=== PATIENT | female | born 1960 | race Caucasian/White ===

== ENCOUNTER → 2017-04-04 | Outpatient (CLI) | payer MEDICARE, BC ==
[~2017-04-04] MED LIST: /WARF25TA; ACET65TA; ASPI81TA63; ASTEPRO; CALCTAB22; DARV100T; FERR325T; IBUP800T OR; LOPR50TA; LOPRESSOR; METO10TA2; MULTIVIT; PERC5TAB8; PERC7.5T8; TRAM100T; TRAM50TA2; VITAMIN; VITAMIN D; VITAMIN D50000 UNT; WARF5VL; aspirin PO; lopressor PO; tramadol PO; vicodin PO
--- NOTE | 2017-04-04 11:49 | REP ---
RENAL AND BLADDER ULTRASOUND: Real-time sonographic evaluation of the kidneys performed. The kidneys are normal in size and echotexture, right kidney measuring 10.1 x 5.2 x 6.0 cm and left kidney 11.0 x 5.2 x 5.3 cm. There is no hydronephrosis bilaterally. A large cyst is again seen of the upper pole of the left kidney measuring 6.4 x 5.4 x 6.0 cm. This is anechoic. Prior measurement on the exam of 11/30/2010 was 7.2 cm maximally. No other renal mass is seen. Urinary bladder demonstrates no mass or calculus, measuring 12.4 x 7.9 x 7.8 cm for a total volume of 499 mL. Post void residual is 33 mL, 6.6% of the original volume. IMPRESSION: Simple left renal cyst actually appears smaller than the prior exam in 2010. Signed by Lalito Park MD 04/04/2017 03:34 P
== END ==
LOC: M RAD 10:23
PROVIDERS: ATTEND Nurse Practitioner Women's Health
DX: N28.1 Cyst of kidney, acquired (principal)

== ENCOUNTER → 2017-04-10 | Outpatient (REF) | payer MEDICARE, BC | LOC: M SMT 13:13 | PROVIDERS: ATTEND Nurse Practitioner Women's Health | DX: R31.1 Benign essential microscopic hematuria (principal) | CPT/HCPCS: 81001; 87086; G0463 ==

== ENCOUNTER → 2017-07-12 | Outpatient (CLI) | payer MEDICARE, BC ==
--- NOTE | 2017-07-12 12:36 | REPMRS ---
Patient History The patient states she has not had a clinical breast exam in over a year. Patient is postmenopausal. Family history of prostate cancer in maternal cousin at age 40 and breast cancer in maternal cousin. Digital Woman Screen Mammo: July 12, 2017 - Exam #: [id number] Bilateral CC and MLO view(s) were taken. Technologist: Miladis Ruvalcaba, Technologist Prior study comparison: June 05, 2016, digital woman screen mammo performed at [facility]. April 22, 2015, digital woman screen mammo performed at [facility]. April 09, 2014, digital woman screen mammo performed at [facility]. FINDINGS: The breast tissue is almost entirely fat. There has been no change in the appearance of the mammogram from the prior studies. There is no interval development of dominant mass, architectural distortion, or clustered microcalcification typical of malignancy. ASSESSMENT: BI-RADS/ACR category 1 mammogram. Negative. Recommendation Routine screening mammogram of both breasts in 1 year (for women over age 40). This mammogram was interpreted with the aid of an FDA-approved computer-aided dectection system. Electronically Signed By: Santos Aragon MD 07/12/17 [id number]
== END ==
LOC: M WHC 10:23
PROVIDERS: ATTEND Nurse Practitioner Family
DX: Z12.31 Encounter for screening mammogram for malignant neoplasm of breast (principal)

== ENCOUNTER → 2017-07-24 | Outpatient (REF) | payer MEDICARE, BC ==
[2017-07-24 11:57] LABS: BASO % 0.3 % (0.0-1.0); EOS % 0.8 % (0.0-3.0); IMMATURE GRANULOCYTE % 0.3 % (0-0); LYMPH # 1.3 10^3/uL (1.5-4.5); LYMPH % 34.4 % (24.0-44.0); MEAN CORPUSCULAR HEMOGLOBIN 29.3 pg (27.0-33.0); MEAN CORPUSCULAR HGB CONC 31.9 g/dl (32.0-36.5); MEAN CORPUSCULAR VOLUME 91.7 fl (80.0-96.0); MONO # 0.3 10^3/uL (0.0-0.8); MONO % 7.6 % (0.0-5.0); NEUTROPHILS # 2.1 10^3/uL (1.8-7.7); NEUTROPHILS % 56.6 % (36.0-66.0); PLATELET COUNT, AUTOMATED 204 10^3/uL (150-450); RED CELL DISTRIBUTION WIDTH 12.8 % (11.5-14.5); WHITE BLOOD COUNT 3.7 10^3/uL (4.0-10.0)
[2017-07-24 12:21] LABS: VITAMIN B12 LEVEL 301 PG/ML (247-911)
[2017-07-24 12:43] LABS: ALBUMIN 3.8 GM/DL (3.2-5.2); ALBUMIN/GLOBULIN RATIO 1.31 (1.00-1.93); ALKALINE PHOSPHATASE 49 U/L (45-117); ALT/SGPT 20 U/L (12-78); ANION GAP 4 MEQ/L (8-16); AST/SGOT 16 U/L (15-37); BILIRUBIN,TOTAL 0.4 MG/DL (0.2-1.0); BLOOD UREA NITROGEN 16 MG/DL (7-18); CALCIUM LEVEL 9.3 MG/DL (8.5-10.1); CARBON DIOXIDE LEVEL 30 MEQ/L (21-32); CHLORIDE LEVEL 107 MEQ/L (98-107); CHOLESTEROL LEVEL 213 MG/DL (<200); FREE T4 0.88 NG/DL (0.76-1.46); GLOMERULAR FILTRATION RATE > 60.0 (>51); GLUCOSE, FASTING 88 MG/DL (70-105); POTASSIUM SERUM 3.9 MEQ/L (3.5-5.1); SODIUM LEVEL 141 MEQ/L (136-145); TOTAL PROTEIN 6.7 GM/DL (6.4-8.2); TRIGLYCERIDES LEVEL 106 MG/DL (<150)
== END ==
LOC: M LABDRAW1 09:49
PROVIDERS: ATTEND Nurse Practitioner Family
DX: E53.8 Deficiency of other specified B group vitamins (principal); R53.83 Other fatigue; E55.9 Vitamin D deficiency, unspecified; E78.4 Other hyperlipidemia

== ENCOUNTER → 2017-10-30 | Outpatient (CLI) | payer MEDICARE, BC ==
[2017-10-30 12:07] LABS: HEMATOCRIT 36.1 % (36.0-47.0); HEMOGLOBIN 11.7 g/dl (12.0-16.0); MEAN CORPUSCULAR HEMOGLOBIN 29.5 pg (27.0-33.0); MEAN CORPUSCULAR HGB CONC 32.4 g/dl (32.0-36.5); MEAN CORPUSCULAR VOLUME 91.2 fl (80.0-96.0); PLATELET COUNT, AUTOMATED 220 10^3/uL (150-450); RED BLOOD COUNT 3.96 10^6/uL (4.00-5.40); RED CELL DISTRIBUTION WIDTH 12.8 % (11.5-14.5); WHITE BLOOD COUNT 5.7 10^3/uL (4.0-10.0)
[2017-10-30 12:16] LABS: APPEARANCE, URINE CLEAR (CLEAR); BACTERIA, URINE AUTO NEGATIVE (NEGATIVE); BILIRUBIN, URINE AUTO NEGATIVE (NEGATIVE); BLOOD, URINE BLOOD 1+ (NEGATIVE); COLOR, URINE YELLOW (YELLOW); GLUCOSE, URINE (UA) AUTO NEGATIVE (NEGATIVE); KETONE, URINE AUTO NEGATIVE (NEGATIVE); LEUKOCYTE ESTERASE, URINE AUTO NEGATIVE (NEGATIVE); MUCUS, URINE SMALL (NEGATIVE); NITRITE, URINE AUTO NEGATIVE (NEGATIVE); PROTEIN, URINE AUTO NEGATIVE (NEGATIVE); RBC, URINE AUTO 5 /HPF (0-3); SPECIFIC GRAVITY URINE AUTO 1.015 (1.002-1.035); SQUAMOUS EPITHELIAL CELL UR AU 0 /HPF (0-6); UROBILINOGEN, URINE AUTO 0.2 mg/dL (0.0-2.0); WBC, URINE AUTO 0 /HPF (0-3)
[2017-10-30 12:18] LABS: INR 0.86; PROTHROMBIN TIME 11.8 SECONDS (12.4-14.5)
[2017-10-30 12:33] LABS: ALBUMIN/GLOBULIN RATIO 1.21 (1.00-1.93); ALKALINE PHOSPHATASE 51 U/L (45-117); ALT/SGPT 26 U/L (12-78); ANION GAP 5 MEQ/L (8-16); AST/SGOT 24 U/L (7-37); BILIRUBIN,TOTAL 0.4 MG/DL (0.2-1.0); BLOOD UREA NITROGEN 16 MG/DL (7-18); CALCIUM LEVEL 9.3 MG/DL (8.5-10.1); CARBON DIOXIDE LEVEL 32 MEQ/L (21-32); CHLORIDE LEVEL 105 MEQ/L (98-107); CREATININE FOR GFR 0.66 MG/DL (0.55-1.02); GLOMERULAR FILTRATION RATE > 60.0 (>51); GLUCOSE, FASTING 83 MG/DL (70-105); POTASSIUM SERUM 3.9 MEQ/L (3.5-5.1); SODIUM LEVEL 142 MEQ/L (136-145); TOTAL PROTEIN 7.3 GM/DL (6.4-8.2)
[2017-10-30 13:04] LABS: ERYTHROCYTE SEDIMENTATION RATE 25 mm/hr (0-30)
== END ==
LOC: M ADMPAT 10:23
DX: Z01.818 Encounter for other preprocedural examination (principal); M17.12 Unilateral primary osteoarthritis, left knee; R94.31 Abnormal electrocardiogram [ECG] [EKG]; Z79.01 Long term (current) use of anticoagulants; Z79.899 Other long term (current) drug therapy
CPT/HCPCS: 71046

== ENCOUNTER → 2017-12-21 | Outpatient (REF) | payer MEDICARE, BC | LOC: M LAB REF 17:38 | DX: N39.0 Urinary tract infection, site not specified (principal) | CPT/HCPCS: 87186 ==

== ENCOUNTER 2018-01-02 10:22 | Inpatient (IN) | payer MEDICARE, BC ==
[2018-01-02] MEDS ORDERED: LIDOCAINE 1% MDV 20ML VIAL SQ (11:00)
[2018-01-02] MEDS: LR 1,000 ML IV ×3 (11:15→21:27)
[2018-01-02] MEDS ORDERED: PROPOFOL 200 MG/20 ML VIAL As Ordered ×2 (12:10→14:46)
[2018-01-02] MEDS ORDERED: fentaNYL 100 MCG/2 ML INJECTION (J3010) As Ordered ×2 (12:13→12:34)
[2018-01-02] MEDS ORDERED: MIDAZOLAM INJ 2 MG/2 ML VIAL (J2250) As Ordered ×3 (12:13→13:41)
[2018-01-02] MEDS: fentaNYL 100 MCG/2 ML INJECTION (J3010) IV (12:52)
[2018-01-02] MEDS: MIDAZOLAM INJ 2 MG/2 ML VIAL (J2250) IV (12:52)
[2018-01-02] MEDS ORDERED: TRANEXAMIC ACID 100 MG/ML 10ML VIAL As Ordered (12:56)
[2018-01-02] MEDS ORDERED: EPINEPHrine INJ 1 MG/ML 1ML AMP As Ordered (12:57)
[2018-01-02] MEDS ORDERED: ceFAZolin 1GM INJ (J0690 PER 500MG) As Ordered (12:57)
[2018-01-02] MEDS ORDERED: BUPIVACAINE LIPOSOME/PF 1.3% 20 ML VIAL (13.3MG/ML)(EXPAREL) As Ordered (12:57)
[2018-01-02] MEDS: ceFAZolin 1GM INJ (J0690 PER 500MG) As Ordered (13:52)
[2018-01-02] MEDS ORDERED: ONDANSETRON 4MG/2ML VIAL (J2405) As Ordered (14:22)
[2018-01-02] MEDS ORDERED: dexameTHASONE 4 MG/ML 1ML VIAL (J1100) As Ordered (14:22)
[2018-01-02] MEDS ORDERED: KETOROLAC 60 MG/2 ML VIAL (J1885) As Ordered (14:22)
[2018-01-02] MEDS ORDERED: MORPHINE 1MG/ML IN 0.9% NACL 100ML IV BAG As Ordered (14:50)
[2018-01-02] MEDS ORDERED: ONDANSETRON 4MG/2ML VIAL (J2405) IV ×3 (15:15→15:30)
[2018-01-02] MEDS ORDERED: fentaNYL 100 MCG/2 ML INJECTION (J3010) IV (15:15)
[2018-01-02] MEDS ORDERED: EPINEPHrine INJ 1 MG/ML 1ML AMP (15:18)
[2018-01-02] MEDS ORDERED: ROPIvacaine 0.5% 30 ML INJECTION (J2795 PER 1MG) (15:18)
[2018-01-02] MEDS ORDERED: dexameTHASONE 10 MG/1 ML VIAL PRES.FREE (J1100) (15:18)
[2018-01-02] MEDS ORDERED: FLEET ENEMA PR (15:30)
[2018-01-02] MEDS ORDERED: NALOXONE INJ 0.4 MG/1 ML VIAL (J2310) IV (15:30)
[2018-01-02] MEDS ORDERED: MORPHINE 1MG/ML IN 0.9% NACL 100ML IV BAG IV (15:30)
[2018-01-02] MEDS ORDERED: diphenhydrAMINE INJ 50MG/ML VIAL (J1200) IV (15:30)
[2018-01-02] MEDS ORDERED: NALBUPHINE HCL 10 MG/ML AMP (J2300) IV (15:30)
[2018-01-02] MEDS ORDERED: ACETAMINOPHEN TAB 650MG DOSE (2X325MG) PO (15:30)
[2018-01-02] MEDS ORDERED: EPIDURAL/PCA KEYS XX (15:30)
[2018-01-02] MEDS: amLODIPine 10 MG TAB PO (17:00)
[2018-01-02] MEDS: WARFARIN SOD 5 MG TAB PO (17:01)
[2018-01-02] MEDS: METOPROLOL TART 25 MG TABLET PO ×2 (17:01→21:28)
[2018-01-02] MEDS: **hydrALAZINE** 10 MG TAB PO (20:00)
[2018-01-03] MEDS: **hydrALAZINE** 10 MG TAB PO ×4 (02:00→20:00)
[2018-01-03] MEDS: LR 1,000 ML IV (04:50)
[2018-01-03] MEDS ORDERED: PERCOCET 5MG/325MG TAB PO (06:30)
[2018-01-03] MEDS ORDERED: ONDANSETRON 4 MG TAB (S0181) PO (06:30)
[2018-01-03 07:01] LABS: HEMATOCRIT 32.4 % (36.0-47.0); HEMOGLOBIN 10.3 g/dl (12.0-16.0); MEAN CORPUSCULAR HEMOGLOBIN 28.8 pg (27.0-33.0); MEAN CORPUSCULAR HGB CONC 31.8 g/dl (32.0-36.5); MEAN CORPUSCULAR VOLUME 90.5 fl (80.0-96.0); PLATELET COUNT, AUTOMATED 193 10^3/uL (150-450); RED BLOOD COUNT 3.58 10^6/uL (4.00-5.40); RED CELL DISTRIBUTION WIDTH 12.6 % (11.5-14.5); WHITE BLOOD COUNT 10.5 10^3/uL (4.0-10.0)
[2018-01-03 07:19] LABS: INR 1.02; PROTHROMBIN TIME 13.5 SECONDS (12.4-14.5)
[2018-01-03 07:22] LABS: ANION GAP 7 MEQ/L (8-16); BLOOD UREA NITROGEN 16 MG/DL (7-18); CALCIUM LEVEL 8.9 MG/DL (8.5-10.1); CARBON DIOXIDE LEVEL 28 MEQ/L (21-32); CHLORIDE LEVEL 107 MEQ/L (98-107); CREATININE FOR GFR 0.67 MG/DL (0.55-1.30); GLOMERULAR FILTRATION RATE > 60.0 (>51); GLUCOSE, FASTING 105 MG/DL (70-100); POTASSIUM SERUM 3.9 MEQ/L (3.5-5.1); SODIUM LEVEL 142 MEQ/L (136-145)
[2018-01-03] MEDS: SENOKOT S TAB PO ×2 (08:16→21:20)
[2018-01-03] MEDS: MOM 30ML SUSPENSION UDC PO (08:16)
[2018-01-03] MEDS: MIRALAX *UNIT DOSE* 17GM PACKET PO (08:17)
[2018-01-03] MEDS: METOPROLOL TART 25 MG TABLET PO ×2 (08:17→21:21)
[2018-01-03] MEDS: PERCOCET 5MG/325MG TAB PO ×3 (08:18→21:21)
[2018-01-03] MEDS: WARFARIN SOD 5 MG TAB PO (16:47)
[2018-01-04] MEDS: **hydrALAZINE** 10 MG TAB PO ×2 (02:00→08:24)
[2018-01-04] MEDS: PERCOCET 5MG/325MG TAB PO ×2 (02:10→06:39)
[2018-01-04 06:15] LABS: HEMATOCRIT 29.5 % (36.0-47.0); HEMOGLOBIN 9.2 g/dl (12.0-16.0); MEAN CORPUSCULAR HEMOGLOBIN 28.7 pg (27.0-33.0); MEAN CORPUSCULAR HGB CONC 31.2 g/dl (32.0-36.5); MEAN CORPUSCULAR VOLUME 91.9 fl (80.0-96.0); PLATELET COUNT, AUTOMATED 175 10^3/uL (150-450); RED BLOOD COUNT 3.21 10^6/uL (4.00-5.40); RED CELL DISTRIBUTION WIDTH 13.2 % (11.5-14.5); WHITE BLOOD COUNT 6.8 10^3/uL (4.0-10.0)
[2018-01-04] MEDS: MIRALAX *UNIT DOSE* 17GM PACKET PO (08:23)
[2018-01-04] MEDS: METOPROLOL TART 25 MG TABLET PO (08:24)
[2018-01-04] MEDS: SENOKOT S TAB PO (08:25)
[2018-01-04] MEDS: MOM 30ML SUSPENSION UDC PO (08:25)
== END 2018-01-04 13:15 | disposition home health service (06) | DRG 470 ==
LOC: M OR 10:22 → M MS5PR 16:05
PROC: 0SRD069 Replacement of Left Knee Joint with Oxidized Zirconium on Polyethylene Synthetic Substitute, Cemented, Open Approach (ICD-10-PCS; principal; 2018-01-02 13:00)
DX: M17.12 Unilateral primary osteoarthritis, left knee (principal); I10 Essential (primary) hypertension; Z88.1 Allergy status to other antibiotic agents; Z79.899 Other long term (current) drug therapy; Z96.651 Presence of right artificial knee joint; Z95.0 Presence of cardiac pacemaker; Z90.710 Acquired absence of both cervix and uterus; Z22.321 Carrier or suspected carrier of Methicillin susceptible Staphylococcus aureus; Z79.82 Long term (current) use of aspirin

== ENCOUNTER → 2018-01-06 | Outpatient (REF) | payer MEDICARE, BC ==
[2018-01-06 13:14] LABS: INR 1.34; PROTHROMBIN TIME 16.8 SECONDS (12.4-14.5)
== END ==
LOC: M LAB REF 11:35
DX: Z79.01 Long term (current) use of anticoagulants (principal)
CPT/HCPCS: 85610

== ENCOUNTER → 2018-01-09 | Outpatient (REF) | payer MEDICARE, BC ==
[2018-01-09 16:36] LABS: INR 1.59; PROTHROMBIN TIME 19.4 SECONDS (12.4-14.5)
== END ==
LOC: M SHH 16:00
DX: Z51.81 Encounter for therapeutic drug level monitoring (principal); Z79.01 Long term (current) use of anticoagulants
CPT/HCPCS: 85610

== ENCOUNTER → 2018-01-13 | Outpatient (REF) | payer MEDICARE, BC ==
[2018-01-13 14:01] LABS: INR 1.87; PROTHROMBIN TIME 22.1 SECONDS (12.4-14.5)
== END ==
LOC: M SHH 12:57
DX: Z79.01 Long term (current) use of anticoagulants (principal)
CPT/HCPCS: 85610

== ENCOUNTER → 2018-01-16 | Outpatient (REF) | payer MEDICARE, BC ==
[2018-01-16 11:47] LABS: INR 1.55
== END ==
LOC: M LABDRAW1 10:49
DX: Z51.81 Encounter for therapeutic drug level monitoring (principal); Z79.01 Long term (current) use of anticoagulants
CPT/HCPCS: 85610

== ENCOUNTER → 2018-01-20 | Outpatient (REF) | payer MEDICARE, BC ==
[2018-01-20 13:06] LABS: INR 1.29; PROTHROMBIN TIME 16.4 SECONDS (12.4-14.5)
== END ==
LOC: M SHH 12:45
DX: Z79.01 Long term (current) use of anticoagulants (principal)
CPT/HCPCS: 85610

== ENCOUNTER → 2018-01-23 | Outpatient (REF) | payer MEDICARE, BC ==
[2018-01-23 12:18] LABS: INR 1.38; PROTHROMBIN TIME 17.2 SECONDS (12.4-14.5)
== END ==
LOC: M LABDRAW1 11:32
DX: Z79.01 Long term (current) use of anticoagulants (principal)
CPT/HCPCS: 85610

== ENCOUNTER → 2018-01-27 | Outpatient (REF) | payer MEDICARE, BC ==
[2018-01-27 12:55] LABS: INR 1.96
== END ==
LOC: M SHH 12:14
DX: Z79.01 Long term (current) use of anticoagulants (principal)
CPT/HCPCS: 85610

== ENCOUNTER → 2018-01-30 | Outpatient (REF) | payer MEDICARE, BC ==
[2018-01-30 15:24] LABS: INR 1.69; PROTHROMBIN TIME 20.4 SECONDS (12.4-14.5)
== END ==
LOC: M SHH 14:48
DX: Z79.01 Long term (current) use of anticoagulants (principal)
CPT/HCPCS: 85610

== ENCOUNTER → 2018-04-15 | Outpatient (CLI) | payer MEDICARE, BC | LOC: M RAD 13:08 | DX: N28.1 Cyst of kidney, acquired (principal) | CPT/HCPCS: 76775 ==

== ENCOUNTER → 2018-04-23 | Outpatient (REF) | payer MEDICARE, BC ==
[2018-04-23 13:28] LABS: APPEARANCE, URINE CLEAR (CLEAR); BACTERIA, URINE AUTO 1+ (NEGATIVE); BILIRUBIN, URINE AUTO NEGATIVE (NEGATIVE); BLOOD, URINE BLOOD 1+ (NEGATIVE); COLOR, URINE YELLOW (YELLOW); GLUCOSE, URINE (UA) AUTO NEGATIVE (NEGATIVE); KETONE, URINE AUTO NEGATIVE (NEGATIVE); LEUKOCYTE ESTERASE, URINE AUTO NEGATIVE (NEGATIVE); MUCUS, URINE SMALL (NEGATIVE); NITRITE, URINE AUTO NEGATIVE (NEGATIVE); PROTEIN, URINE AUTO NEGATIVE (NEGATIVE); RBC, URINE AUTO 2 /HPF (0-3); SPECIFIC GRAVITY URINE AUTO 1.023 (1.002-1.035); SQUAMOUS EPITHELIAL CELL UR AU 1 /HPF (0-6); UROBILINOGEN, URINE AUTO 0.2 mg/dL (0.0-2.0); WBC, URINE AUTO 0 /HPF (0-3)
== END ==
LOC: M SMT 13:06
DX: R31.1 Benign essential microscopic hematuria (principal)
CPT/HCPCS: 81001

== ENCOUNTER 2018-08-15 12:01 | Emergency (ER) | payer MEDICARE, BC ==
[2018-08-15 12:57] LABS: BASO % 0.2 % (0.0-1.0); EOS % 0.9 % (0.0-3.0); HEMATOCRIT 39.8 % (36.0-47.0); HEMOGLOBIN 12.7 g/dl (12.0-15.5); IMMATURE GRANULOCYTE % 0.4 % (0-3.0); LYMPH # 1.4 10^3/uL (1.5-4.5); LYMPH % 29.2 % (24.0-44.0); MEAN CORPUSCULAR HEMOGLOBIN 29.4 pg (27.0-33.0); MEAN CORPUSCULAR HGB CONC 31.9 g/dl (32.0-36.5); MEAN CORPUSCULAR VOLUME 92.1 fl (80.0-96.0); MONO # 0.4 10^3/uL (0.0-0.8); MONO % 8.3 % (0.0-5.0); NEUTROPHILS # 2.9 10^3/uL (1.8-7.7); PLATELET COUNT, AUTOMATED 214 10^3/uL (150-450); RED BLOOD COUNT 4.32 10^6/uL (4.00-5.40); RED CELL DISTRIBUTION WIDTH 12.9 % (11.5-14.5); WHITE BLOOD COUNT 4.7 10^3/uL (4.0-10.0)
[2018-08-15 13:10] LABS: INR 0.93; PROTHROMBIN TIME 12.5 SECONDS (12.1-14.4)
[2018-08-15 13:13] LABS: D-DIMER QUANT 941.1 ng/ml (<500)
[2018-08-15 13:31] LABS: ALBUMIN 4.1 GM/DL (3.2-5.2); ALBUMIN/GLOBULIN RATIO 1.32 (1.00-1.93); ALKALINE PHOSPHATASE 61 U/L (45-117); ALT/SGPT 22 U/L (12-78); ANION GAP 7 MEQ/L (8-16); AST/SGOT 17 U/L (7-37); BILIRUBIN,DIRECT 0.1 MG/DL (0.0-0.2); BILIRUBIN,TOTAL 0.5 MG/DL (0.2-1.0); BLOOD UREA NITROGEN 21 MG/DL (7-18); CALCIUM LEVEL 9.3 MG/DL (8.5-10.1); CARBON DIOXIDE LEVEL 29 MEQ/L (21-32); CHLORIDE LEVEL 107 MEQ/L (98-107); CPK CREATINE PHOSPHOKINASE 113 U/L (26-192); CREATININE FOR GFR 0.69 MG/DL (0.55-1.30); ETHYL ALCOHOL (ETHANOL) 0.003 % (0.000-0.010); FREE T4 0.88 NG/DL (0.76-1.46); GLOMERULAR FILTRATION RATE > 60.0 (>51); GLUCOSE, FASTING 86 MG/DL (70-100); MAGNESIUM LEVEL 2.5 MG/DL (1.8-2.4); MB/CK RELATIVE INDEX 1.24 (< OR =4); POTASSIUM SERUM 4.3 MEQ/L (3.5-5.1); SODIUM LEVEL 143 MEQ/L (136-145); THYROID STIMULATING HORMONE 0.505 uIU/ML (0.358-3.740); TOTAL PROTEIN 7.2 GM/DL (6.4-8.2); TROPONIN I < 0.02 NG/ML (< 0.10)
[2018-08-15 13:44] LABS: BEDSIDE GLUCOSE 58 MG/DL (70-105)
[2018-08-15] MEDS ORDERED: ISOVUE-370 76% 100ML VIAL (Q9967) As Ordered ×2 (13:56)
[2018-08-15 14:28] LABS: AMPHETAMINES LEVEL URINE NEGATIVE (NEGATIVE); BARBITURATES URINE NEGATIVE (NEGATIVE); BENZODIAZEPINES URINE NEGATIVE (NEGATIVE); CANNABINOIDS URINE NEGATIVE (NEGATIVE); COCAINE METABOLITE URINE NEGATIVE (NEGATIVE); METHADONE URINE NEGATIVE (NEGATIVE); OPIATES URINE NEGATIVE (NEGATIVE); PHENCYCLIDINE URINE NEGATIVE (NEGATIVE)
[2018-08-15 14:32] LABS: ESTIMATED AVERAGE GLUCOSE 108 MG/DL (60-110); HEMOGLOBIN A1c 5.4 %
[2018-08-15 14:47] LABS: BEDSIDE GLUCOSE 78 MG/DL (70-105)
[2018-08-19 00:07] LABS: INSULIN LEVEL 19.9 uIU/mL (2.6-24.9)
[2018-08-19 00:07] LABS: "\\\"INSULIN \\\"\\\"PRO\\\"\\\" LEVEL\\\"" 2.8 pmol/L (0.0-10.0)
[2018-08-26 10:32] LABS: ACETOHEXAMIDE Negative ug/mL (20-60); CHLORPROPAMIDE Negative ug/mL (75-250); GLIMEPIRIDE Negative ng/mL (80-250); GLIPIZIDE Negative ng/mL (200-1000); GLYBURIDE Negative ng/mL (UP TO 1500); NATEGLINIDE Negative ng/mL (UP TO 10000); REPAGLINIDE Negative ng/mL (UP TO 200); TOLAZAMIDE Negative ug/mL (UP TO 80); TOLBUTAMIDE Negative ug/mL (40-100)
== END 2018-08-15 15:18 | disposition home or self-care (01) ==
LOC: M ED 12:01
DX: E16.2 Hypoglycemia, unspecified (principal); R55 Syncope and collapse; E86.0 Dehydration; I11.9 Hypertensive heart disease without heart failure; I25.10 Atherosclerotic heart disease of native coronary artery without angina pectoris; M19.90 Unspecified osteoarthritis, unspecified site; Z95.0 Presence of cardiac pacemaker; Z88.5 Allergy status to narcotic agent; Z88.1 Allergy status to other antibiotic agents; Z91.048 Other nonmedicinal substance allergy status; Z79.899 Other long term (current) drug therapy; Z79.82 Long term (current) use of aspirin
CPT/HCPCS: Q9967

== ENCOUNTER → 2018-09-08 | Outpatient (CLI) | payer MEDICARE, BC | LOC: M RAD 09:16 | DX: M51.26 Other intervertebral disc displacement, lumbar region (principal); M47.817 Spondylosis without myelopathy or radiculopathy, lumbosacral region; M51.06 Intervertebral disc disorders with myelopathy, lumbar region; M51.36 Other intervertebral disc degeneration, lumbar region | CPT/HCPCS: 72131 ==

== ENCOUNTER → 2018-12-18 | Outpatient (CLI) | payer MEDICARE ==
[~2018-12-18] MED LIST changes: +ASPI1TAB15 PO; +BENA25CA4 PO; +COUM2.5T17 PO; +FLUTISP; +HYDR-3713 PO; +MELO15TA28; +METO1TAB87; +PERC5TAB12 PO
--- NOTE | 2018-12-18 18:12 | REPMRS ---
Patient History The patient states she has not had a clinical breast exam in over a year. Patient is postmenopausal. Family history of ovarian cancer under age 50 in niece. Digital Woman Screen Mammo: December 18, 2018 - Exam #: [id number] Bilateral CC and MLO view(s) were taken. Technologist: Juana Lomax Technologist Prior study comparison: July 12, 2017, digital woman screen mammo performed at [facility]. June 05, 2016, digital woman screen mammo performed at [facility]. FINDINGS: The breast tissue is almost entirely fat. There has been no change in the appearance of the mammogram from the prior studies. There is no interval development of dominant mass, areas of architectural distortion, or clustered microcalcification typical of malignancy. Scattered lymph nodes are seen in the left axilla. Pacemaker overlies a portion of the left axilla. 3-D tomosynthesis shows no additional findings. The patient's Tyrer-Cuzick lifetime risk assessment score is 6.7 %. No significant changes when compared with prior studies. Assessment: BI-RADS/ACR category 2 mammogram. Benign Findings. Recommendation Routine screening mammogram in 1 year. A. Negative x-ray reports should not delay biopsy if a dominant or clinically suspicious mass is present. B. Four to eight percent of cancers are not identified by mammography. C. Adenosis and dense breast may obscure an underlying neoplasm.(for women over age 40). This mammogram was interpreted with the aid of an FDA-approved computer-aided dectection system. Electronically Signed By: Jose Mckeon MD 12/18/18 [id number]
== END ==
LOC: M WHC 10:16
PROVIDERS: ATTEND Nurse Practitioner Family
DX: Z12.31 Encounter for screening mammogram for malignant neoplasm of breast (principal)

== ENCOUNTER → 2019-03-02 | Outpatient (REF) | payer MEDICARE, BC ==
[~2019-03-02] MED LIST changes: -/WARF25TA; +COUM1TAB18
[2019-03-02 14:04] LABS: APPEARANCE, URINE CLOUDY (CLEAR); BACTERIA, URINE AUTO NEGATIVE (NEGATIVE); BILIRUBIN, URINE AUTO NEGATIVE (NEGATIVE); BLOOD, URINE BLOOD 1+ (NEGATIVE); COLOR, URINE YELLOW (YELLOW); GLUCOSE, URINE (UA) AUTO NEGATIVE (NEGATIVE); KETONE, URINE AUTO NEGATIVE (NEGATIVE); LEUKOCYTE ESTERASE, URINE AUTO TRACE (NEGATIVE); MUCUS, URINE SMALL (NEGATIVE); NITRITE, URINE AUTO NEGATIVE (NEGATIVE); PROTEIN, URINE AUTO NEGATIVE (NEGATIVE); RBC, URINE AUTO 2 /HPF (0-3); SPECIFIC GRAVITY URINE AUTO 1.021 (1.002-1.035); SQUAMOUS EPITHELIAL CELL UR AU 9 /HPF (0-6); UROBILINOGEN, URINE AUTO 0.2 mg/dL (0.0-2.0); WBC, URINE AUTO 4 /HPF (0-3)
== END ==
LOC: M LAB REF 13:43
PROVIDERS: ATTEND Nurse Practitioner Family
DX: R30.0 Dysuria (principal)

== ENCOUNTER → 2019-03-05 | Outpatient (CLI) | payer MEDICARE | LOC: M RAD 18:25 | PROVIDERS: ATTEND Nurse Practitioner Family | DX: Z53.9 Procedure and treatment not carried out, unspecified reason (principal); M54.6 Pain in thoracic spine ==

== ENCOUNTER → 2019-03-10 | Outpatient (REF) | payer MEDICARE ==
[2019-03-10 19:12] LABS: BLOOD UREA NITROGEN 19 MG/DL (7-18); CREATININE FOR GFR 0.81 MG/DL (0.55-1.30); GLOMERULAR FILTRATION RATE > 60.0 (>51)
== END ==
LOC: M LABDRAW1 18:37
PROVIDERS: ATTEND Physician Assistant
DX: M70.62 Trochanteric bursitis, left hip (principal)

== ENCOUNTER → 2019-03-12 | Outpatient (CLI) | payer MEDICARE ==
--- NOTE | 2019-03-12 16:12 | REP ---
RENAL ULTRASOUND: HISTORY: Kidney cyst. COMPARISON: 04/15/2018 The kidneys are normal in echogenicity. The right kidney measures 5.2 cm in transverse by 5.2 cm in AP x 10.3 cm in cephalocaudal dimensions. The left kidney measures 4 cm in transverse x 4.3 cm in AP x 10.9 cm in cephalocaudal dimensions. A cyst is present in the upper pole of the left kidney. The cyst measures 6 x 5.2 x 5.8 cm and is slightly increased in size compared to the previous study. There is no hydronephrosis or mass. There are no filling defects in the urinary bladder. IMPRESSION: Left renal cyst slightly increased in size compared to the previous study. Electronically Signed by Jason Kingston MD 03/12/2019 04:17 P
== END ==
LOC: M RAD 12:47
PROVIDERS: ATTEND Nurse Practitioner Women's Health
DX: N28.1 Cyst of kidney, acquired (principal)

== ENCOUNTER → 2019-03-24 | Outpatient (CLI) | payer MEDICARE ==
[2019-03-24 09:30] LABS: BASO % 0.5 % (0.0-1.0); EOS # 0.1 10^3/uL (0.0-0.50); EOS % 2.2 % (0.0-3.0); HEMATOCRIT 41.1 % (36.0-47.0); HEMOGLOBIN 12.9 g/dl (12.0-15.5); LYMPH # 1.2 10^3/uL (1.5-4.5); LYMPH % 28.8 % (24.0-44.0); MEAN CORPUSCULAR HEMOGLOBIN 28.9 pg (27.0-33.0); MEAN CORPUSCULAR HGB CONC 31.4 g/dl (32.0-36.5); MEAN CORPUSCULAR VOLUME 91.9 fl (80.0-96.0); MONO # 0.3 10^3/uL (0.0-0.8); MONO % 8.2 % (0.0-5.0); NEUTROPHILS # 2.5 10^3/uL (1.8-7.7); NEUTROPHILS % 60.1 % (36.0-66.0); PLATELET COUNT, AUTOMATED 203 10^3/uL (150-450); RED BLOOD COUNT 4.47 10^6/uL (4.00-5.40); WHITE BLOOD COUNT 4.1 10^3/uL (4.0-10.0)
[2019-03-24 10:58] LABS: ALBUMIN 3.5 GM/DL (3.2-5.2); ALT/SGPT 21 U/L (12-78); BILIRUBIN,TOTAL 0.5 MG/DL (0.2-1.0); BLOOD UREA NITROGEN 13 MG/DL (7-18); CALCIUM LEVEL 8.7 MG/DL (8.5-10.1); CARBON DIOXIDE LEVEL 32 MEQ/L (21-32); CHLORIDE LEVEL 107 MEQ/L (98-107); CHOLESTEROL LEVEL 229 MG/DL (<200); CHOLESTEROL RISK RATIO 3.816 (<5); CREATININE FOR GFR 0.79 MG/DL (0.55-1.30); GLOMERULAR FILTRATION RATE > 60.0 (>51); GLUCOSE, FASTING 85 MG/DL (70-100); HDL CHOLESTEROL 60 MG/DL (>40); LDL CHOLESTEROL 146 MG/DL (<100); NON-HDL-C 169 MG/DL; POTASSIUM SERUM 4.1 MEQ/L (3.5-5.1); SODIUM LEVEL 143 MEQ/L (136-145); TOTAL 25(OH) VITAMIN D 22.4 NG/ML (30.0-100.0); TOTAL PROTEIN 6.8 GM/DL (6.4-8.2); TRIGLYCERIDES LEVEL 115 MG/DL (<150); VITAMIN B12 LEVEL 331 PG/ML (247-911)
== END ==
LOC: M LAB 08:25
PROVIDERS: ATTEND Nurse Practitioner Family
DX: I49.9 Cardiac arrhythmia, unspecified (principal); E53.8 Deficiency of other specified B group vitamins; E55.9 Vitamin D deficiency, unspecified; E78.49 Other hyperlipidemia; Z79.82 Long term (current) use of aspirin

== ENCOUNTER → 2019-03-25 | Outpatient (REF) | payer MEDICARE ==
[2019-03-25 12:39] LABS: APPEARANCE, URINE CLEAR (CLEAR); BACTERIA, URINE AUTO NEGATIVE (NEGATIVE); BILIRUBIN, URINE AUTO NEGATIVE (NEGATIVE); BLOOD, URINE BLOOD 2+ (NEGATIVE); COLOR, URINE STRAW (YELLOW); GLUCOSE, URINE (UA) AUTO NEGATIVE (NEGATIVE); KETONE, URINE AUTO NEGATIVE (NEGATIVE); LEUKOCYTE ESTERASE, URINE AUTO NEGATIVE (NEGATIVE); NITRITE, URINE AUTO NEGATIVE (NEGATIVE); PROTEIN, URINE AUTO NEGATIVE (NEGATIVE); RBC, URINE AUTO 2 /HPF (0-3); SPECIFIC GRAVITY URINE AUTO 1.009 (1.002-1.035); SQUAMOUS EPITHELIAL CELL UR AU 0 /HPF (0-6); UROBILINOGEN, URINE AUTO 0.2 mg/dL (0.0-2.0); WBC, URINE AUTO 0 /HPF (0-3)
== END ==
LOC: M LAB REF 11:30
PROVIDERS: ATTEND Nurse Practitioner Family
DX: R30.0 Dysuria (principal)

== ENCOUNTER → 2019-03-26 | Outpatient (CLI) | payer MEDICARE ==
--- NOTE | 2019-03-26 16:23 | REP ---
KUB: Three views presented. History: Lower back pain. Findings: The bowel gas pattern is unremarkable. There are clips in right upper quadrant. Pacemaker is seen in the heart. There are mild degenerative spondylosis changes in the lumbar spine. Phleboliths are noted bilaterally in the true pelvis. There is a rounded soft tissue density projecting at the upper pole left kidney 7.0 cm in diameter. This corresponds with a 6.0 cm cysts seen in the left kidney upper pole on March 12, 2019 prior ultrasound. No other mass or organomegaly is seen. No pathologic calcification is seen. Impression: 7 cm cyst seen projecting at the upper pole of the left kidney corresponding with a recent ultrasound. Post cholecystectomy. Otherwise negative. Electronically Signed by Houston Aragon MD 03/26/2019 04:15 P
== END ==
LOC: M RAD 15:31
PROVIDERS: ATTEND Nurse Practitioner Family
DX: R30.0 Dysuria (principal); M54.5 Low back pain; N28.1 Cyst of kidney, acquired; Z90.49 Acquired absence of other specified parts of digestive tract

== ENCOUNTER → 2019-04-02 | Outpatient (CLI) | payer MEDICARE ==
--- NOTE | 2019-04-02 13:48 | REP ---
REASON: Abdominal pain. The lack of intravenous and oral bowel preparatory contrast agents decrease the sensitivity of the exam. Comparison examination 03/20/2016 which is the latest prior. The lung bases are clear and unchanged. Limited evaluation of the solid intra-abdominal organs show no gross abnormalities or significant changes from the prior exam. Limited evaluation of the pancreas and adrenal glands show no gross abnormalities or significant changes from the prior exam. There is no nephroureterolithiasis, hydronephrosis, or hydroureter. There are no urinary bladder calcifications. There is a round 5.6 cm sized left renal cyst which is without evidence of septations or mural nodules, but less than optimally assessed due to the lack of intravenous contrast. There is a tiny calcification seen in the anterolateral cyst wall which is unchanged. The cyst has water Hounsfield unit readings. Other smaller bilateral renal peripelvic cysts are noted. These are tiny and stable. The abdominal aorta and periaortic regions are within normal limits although seen in a limited fashion. The bowel loops and their mesenteries are within normal limits. There is no free fluid or free air. There is no evidence of an intra-abdominal mass or adenopathy. CT PELVIS: There is sigmoid colon diverticulosis. There is no free fluid or free air. There is no mass or adenopathy. There are bilateral pelvic phleboliths status quo. Bone window technique throughout the examination shows chronic small degenerative changes and bilateral L5 spondylolysis status quo. IMPRESSION: Chronic changes as described above. There is no evidence of acute intra-abdominal or intrapelvic disease. Electronically Signed by Mynor Britton DO 04/02/2019 03:35 P
== END ==
LOC: M RAD 07:26
PROVIDERS: ATTEND Nurse Practitioner Family
DX: K57.90 Diverticulosis of intestine, part unspecified, without perforation or abscess without bleeding (principal)

== ENCOUNTER → 2019-04-23 | Outpatient (REF) | payer MEDICARE ==
[2019-04-23 14:01] LABS: APPEARANCE, URINE CLEAR (CLEAR); BACTERIA, URINE AUTO 1+ (NEGATIVE); BILIRUBIN, URINE AUTO NEGATIVE (NEGATIVE); BLOOD, URINE BLOOD 1+ (NEGATIVE); COLOR, URINE STRAW (YELLOW); GLUCOSE, URINE (UA) AUTO NEGATIVE (NEGATIVE); KETONE, URINE AUTO NEGATIVE (NEGATIVE); LEUKOCYTE ESTERASE, URINE AUTO NEGATIVE (NEGATIVE); MUCUS, URINE SMALL (NEGATIVE); NITRITE, URINE AUTO NEGATIVE (NEGATIVE); PROTEIN, URINE AUTO NEGATIVE (NEGATIVE); RBC, URINE AUTO 2 /HPF (0-3); SPECIFIC GRAVITY URINE AUTO 1.008 (1.002-1.035); SQUAMOUS EPITHELIAL CELL UR AU 4 /HPF (0-6); UROBILINOGEN, URINE AUTO 0.2 mg/dL (0.0-2.0); WBC, URINE AUTO 0 /HPF (0-3)
== END ==
LOC: M SMT 13:12
PROVIDERS: ATTEND Nurse Practitioner Women's Health
DX: R31.1 Benign essential microscopic hematuria (principal)
CPT/HCPCS: 81001; 87086; 88108; G0463

== ENCOUNTER → 2019-07-21 | Outpatient (REF) | payer MEDICARE ==
[2019-07-21 13:04] LABS: BLOOD UREA NITROGEN 12 MG/DL (7-18); CALCIUM LEVEL 9.6 MG/DL (8.5-10.1); CARBON DIOXIDE LEVEL 29 MEQ/L (21-32); CHLORIDE LEVEL 109 MEQ/L (98-107); CHOLESTEROL LEVEL 233 MG/DL (<200); CREATININE FOR GFR 0.73 MG/DL (0.55-1.30); GLOMERULAR FILTRATION RATE > 60.0 (>51); GLUCOSE, FASTING 81 MG/DL (70-100); HDL CHOLESTEROL 64 MG/DL (>40); LDL CHOLESTEROL 143 MG/DL (<100); NON-HDL-C 169 MG/DL; POTASSIUM SERUM 4.3 MEQ/L (3.5-5.1); SODIUM LEVEL 143 MEQ/L (136-145); TRIGLYCERIDES LEVEL 129 MG/DL (<150)
[2019-07-21 13:10] LABS: TOTAL 25(OH) VITAMIN D 35.7 NG/ML (30.0-100.0)
== END ==
LOC: M LABDRAW1 12:04
PROVIDERS: ATTEND Physician Assistant Medical
DX: E78.5 Hyperlipidemia, unspecified (principal); I10 Essential (primary) hypertension; E55.9 Vitamin D deficiency, unspecified; Z79.82 Long term (current) use of aspirin

== ENCOUNTER 2019-08-26 08:54 | Day surgery (SDC) | payer MEDICARE ==
[~2019-08-26] VITALS: Ht 162.6 cm; Wt 99.3 kg
[~2019-08-26 08:54] MED LIST changes: +METO25TA4 PO; +NS 1,000 ML IV SCH
[2019-08-26] MEDS ORDERED: PROPOFOL 200 MG/20 ML VIAL As Ordered ONE (09:29)
[2019-08-26] MEDS ORDERED: LIDOCAINE 2% INJ 100 MG/5 ML SDV (FOR ANES.) As Ordered ONE (09:29)
--- NOTE | 2019-08-26 10:43 | ROOR ---
Patient Name: Delma Mcghee Procedure Date: 08/26/2019 10:13 AM Date of : 1960 Age: 58 Room: [facility] Gender: Female Note Status: Finalized Procedure: Total Colonoscopy to Cecum + ileoscopy Indications: Screening for colorectal malignant neoplasm Providers: Remy Day MD Referring MD: JONG Driver Requesting Provider: Medicines: Monitored Anesthesia Care Complications: No immediate complications. Procedure: Pre-Anesthesia Assessment: - The heart rate, respiratory rate, oxygen saturations, blood pressure, adequacy of pulmonary ventilation, and response to care were monitored throughout the procedure. The Colonoscope was introduced through the anus and advanced to the cecum, identified by appendiceal orifice and ileocecal valve. The colonoscopy was performed without difficulty. The patient tolerated the procedure well. The quality of the bowel preparation was excellent. Findings: The perianal and digital rectal examinations were normal. Non-bleeding internal hemorrhoids were found during retroflexion. The hemorrhoids were small and Grade I (internal hemorrhoids that do not prolapse). Multiple small and large-mouthed diverticula were found in the recto-sigmoid colon, sigmoid colon and descending colon. The exam was otherwise without abnormality on direct and retroflexion views. The terminal ileum appeared normal. Impression: - Non-bleeding internal hemorrhoids. - Diverticulosis in the recto-sigmoid colon, in the sigmoid colon and in the descending colon. - The examination was otherwise normal on direct and retroflexion views. - The examined portion of the ileum was normal. - No specimens collected. - The exam was otherwise normal to the cecum. Recommendation: - Patient has a contact number available for emergencies. The signs and symptoms of potential delayed complications were discussed with the patient. Return to normal activities tomorrow. Written discharge instructions were provided to the patient. - High fiber diet. - Discharge patient to home. - Continue present medications. - Repeat colonoscopy in 10 years for screening purposes. - Return to referring physician. - The findings and recommendations were discussed with the patient's family. Remy Day MD Remy Day MD 08/26/2019 10:42:56 AM Electronically signed by Remy Day MD Number of Addenda: 0 Note Initiated On: 08/26/2019 10:13 AM Estimated Blood Loss: Estimated blood loss: none.
[2019-08-26 10:59] VITALS: BP 126/81
== END 2019-08-26 11:02 | disposition home or self-care (01) ==
LOC: M OPP 08:54
PROVIDERS: ATTEND Internal Medicine Gastroenterology
DX: Z12.11 Encounter for screening for malignant neoplasm of colon (principal); K64.0 First degree hemorrhoids; K57.30 Diverticulosis of large intestine without perforation or abscess without bleeding; I50.9 Heart failure, unspecified; I11.0 Hypertensive heart disease with heart failure; Z79.899 Other long term (current) drug therapy; Z88.2 Allergy status to sulfonamides; Z88.5 Allergy status to narcotic agent; Z91.048 Other nonmedicinal substance allergy status; Z95.0 Presence of cardiac pacemaker

== ENCOUNTER → 2019-11-16 | Outpatient (CLI) | payer MEDICARE ==
[~2019-11-16] MED LIST changes: -NS 1,000 ML IV SCH
--- NOTE | 2019-11-16 18:24 | REP ---
CT of the left hip: Comparison is the abdomen/pelvis CT dated 04/02/2019. The study is performed without IV contrast. There is mild joint space narrowing of the femoral acetabular joint. Mineralization is normal. No fractures are identified. There are no lytic or destructive changes. No periarticular fluid collections are identified to suggest bursitis. There is faintly visible calcification and spurring of the superior and posterior acetabular labrum compatible with mild degenerative change. This is not significantly changed from the comparison study. Impression: Mild degenerative changes of the acetabular labrum as described. No CT evidence of bursitis, however, MRI would be more sensitive. No fracture. Mineralization is normal. Electronically Signed by Lalito Smith MD 11/16/2019 06:14 P
== END ==
LOC: M RAD 16:16
PROVIDERS: ATTEND Physician Assistant
DX: M70.62 Trochanteric bursitis, left hip (principal)

== ENCOUNTER → 2020-04-19 | Outpatient (REF) | payer MEDICARE ==
[2020-04-19 18:03] LABS: APPEARANCE, URINE HAZY (CLEAR); BACTERIA, URINE AUTO NEGATIVE (NEGATIVE); BILIRUBIN, URINE AUTO NEGATIVE (NEGATIVE); BLOOD, URINE BLOOD 1+ (NEGATIVE); COLOR, URINE YELLOW (YELLOW); GLUCOSE, URINE (UA) AUTO NEGATIVE (NEGATIVE); KETONE, URINE AUTO NEGATIVE (NEGATIVE); LEUKOCYTE ESTERASE, URINE AUTO NEGATIVE (NEGATIVE); MUCUS, URINE SMALL (NEGATIVE); NITRITE, URINE AUTO NEGATIVE (NEGATIVE); PROTEIN, URINE AUTO NEGATIVE (NEGATIVE); RBC, URINE AUTO 1 /HPF (0-3); SPECIFIC GRAVITY URINE AUTO 1.018 (1.002-1.035); SQUAMOUS EPITHELIAL CELL UR AU 5 /HPF (0-6); UROBILINOGEN, URINE AUTO 0.2 mg/dL (0.0-2.0); WBC, URINE AUTO 1 /HPF (0-3)
== END ==
LOC: M SMT 16:51
PROVIDERS: ATTEND Nurse Practitioner Women's Health
DX: R31.1 Benign essential microscopic hematuria (principal)
CPT/HCPCS: 81001; G0463

== ENCOUNTER → 2020-06-09 | Outpatient (REF) | payer MEDICARE ==
[~2020-06-09] MED LIST changes: +ASPI-546 PO; -ASPI1TAB15 PO
[2020-07-25 11:03] LABS: ALBUMIN 3.9 GM/DL (3.2-5.2); ALT/SGPT 20 U/L (12-78); BILIRUBIN,TOTAL 0.4 MG/DL (0.2-1.0); BLOOD UREA NITROGEN 13 MG/DL (7-18); CALCIUM LEVEL 9.4 MG/DL (8.5-10.1); CARBON DIOXIDE LEVEL 30 MEQ/L (21-32); CHLORIDE LEVEL 107 MEQ/L (98-107); CHOLESTEROL LEVEL 246 MG/DL (<200); CHOLESTEROL RISK RATIO 4.472 (<5); CREATININE FOR GFR 0.84 MG/DL (0.55-1.30); GLOMERULAR FILTRATION RATE > 60.0 (>51); GLUCOSE, FASTING 85 MG/DL (70-100); HDL CHOLESTEROL 55 MG/DL (>40); LDL CHOLESTEROL 170 MG/DL (<100); NON-HDL-C 191 MG/DL; POTASSIUM SERUM 4.1 MEQ/L (3.5-5.1); SODIUM LEVEL 141 MEQ/L (136-145); TOTAL 25(OH) VITAMIN D 28.3 NG/ML (30.0-100.0); TOTAL PROTEIN 7.1 GM/DL (6.4-8.2); TRIGLYCERIDES LEVEL 105 MG/DL (<150)
== END ==
LOC: M LABDRWAD 10:47
PROVIDERS: ATTEND Physician Assistant
DX: E78.5 Hyperlipidemia, unspecified (principal); E55.9 Vitamin D deficiency, unspecified; Z79.899 Other long term (current) drug therapy

== ENCOUNTER → 2020-09-08 | Outpatient (CLI) | payer MEDICARE ==
--- NOTE | 2020-09-08 17:39 | REP ---
INDICATION: EVALUATE NODULE IN LEFT CALF/LOCALIZED SWELLING. Lump in the left calf COMPARISON: None. TECHNIQUE: Sonographic scanning left distal calf. FINDINGS: Scanning over the lump in the posterior aspect of the left distal calf demonstrates a irregular hypoechoic complex cystic cavity measuring 1.4 x 1.0 x 1.3 cm. This is surrounded by of 3-4 mm of slightly hyperechoic soft tissue. On color Doppler, the lesion does not show evidence of flow. Study is otherwise unremarkable. IMPRESSION: Irregular small of complex fluid collection surrounded by hyperechoic tissue. Hematoma seroma versus abscess. Lesion was not hyperemic on color Doppler interrogation. Clinical follow-up is advised. <Electronically signed by Santos Aragon > 09/08/20 [id number]
== END ==
LOC: M RAD 15:44
PROVIDERS: ATTEND Nurse Practitioner Family
DX: R22.42 Localized swelling, mass and lump, left lower limb (principal)

== ENCOUNTER → 2020-09-09 | Outpatient (CLI) | payer MEDICARE ==
--- NOTE | 2020-09-09 11:16 | REPMRS ---
Patient History The patient states she has not had a clinical breast exam in over a year. Family history of ovarian cancer under age 50 in niece. Digital Woman Screen Mammo: September 09, 2020 - Exam #: [id number] Bilateral CC and MLO view(s) were taken. Technologist: Marybeth Escalante, Technologist Prior study comparison: December 18, 2018, bilateral digital woman screen mammo performed at [facility]. July 12, 2017, digital woman screen mammo performed at [facility]. June 05, 2016, digital woman screen mammo performed at [facility]. FINDINGS: There are scattered fibroglandular densities. The Volpara volumetric breast density category is:B. There is a pacemaker power plant projecting over the left axilla on the MLO view. There has been no change in the appearance of the mammogram from the prior studies. There is a mild amount of scattered fibroglandular density which is fairly symmetric. There is no interval development of dominant mass, architectural distortion, or grouped microcalcification suggestive of malignancy. 3-D tomosynthesis shows no additional findings. Assessment: BI-RADS/ACR category 2 mammogram. Benign Findings. Recommendation Routine screening mammogram of both breasts in 1 year (for women over age 40). This patient's Lifetime Breast Cancer Risk is estimated at 6.5 %. This mammogram was interpreted with the aid of an FDA-approved computer-aided dectection system. Electronically Signed By: Santos Aragon MD 09/09/20 [id number]
== END ==
LOC: M WHC 09:34
PROVIDERS: ATTEND Nurse Practitioner Family
DX: Z12.31 Encounter for screening mammogram for malignant neoplasm of breast (principal); Z80.41 Family history of malignant neoplasm of ovary

== ENCOUNTER → 2020-10-14 | Outpatient (CLI) | payer MEDICARE ==
[2020-10-14 12:55] VITALS: BP 154/95
--- NOTE | 2020-10-14 13:43 | REP ---
INDICATION: LT LEG LESION NEOPLASMO OF UNSP BEHAVIOR. COMPARISON: Comparison study September 08, 2020.. TECHNIQUE: Two-dimensional scanning left distal calf soft tissues. FINDINGS: Scanning in the area in question in the posterior calf on the left is performed. Previous study showed a 3.6 x 5.7 x 3.0 mm irregular hypo to anechoic fluid collection surrounded by a rim of hyperechoic tissue. Today's study shows this same morphology only it is significantly smaller. The dimensions of the anechoic center has decreased to 3.6 x 2.8 x 2.7 mm. This fluid collection is surrounded by a rim of hyperechoic of fat. The findings are most compatible with fat necrosis versus resolving hematoma. Since it is decreased in size, we elected to with hold the anticipated aspiration. IMPRESSION: Improving tiny complex fluid collections surrounded by a hyperechoic fat question fat necrosis versus resolving hematoma. Since the lesion has decreased in size in the interval since September 08, 2020, we elected to defer the anticipated aspiration.. <Electronically signed by Santos Aragon > 10/14/20 [id number]
== END ==
LOC: M IRPRO 12:46
PROVIDERS: ATTEND Surgery
DX: D49.2 Neoplasm of unspecified behavior of bone, soft tissue, and skin (principal); M79.662 Pain in left lower leg

== ENCOUNTER → 2020-12-13 | Outpatient (CLI) | payer MEDICARE ==
[2020-12-13 12:53] LABS: APPEARANCE, URINE CLEAR (CLEAR); BACTERIA, URINE AUTO 1+ (NEGATIVE); BILIRUBIN, URINE AUTO NEGATIVE (NEGATIVE); BLOOD, URINE BLOOD 1+ (NEGATIVE); COLOR, URINE YELLOW (YELLOW); GLUCOSE, URINE (UA) AUTO NEGATIVE (NEGATIVE); KETONE, URINE AUTO NEGATIVE (NEGATIVE); LEUKOCYTE ESTERASE, URINE AUTO 2+ (NEGATIVE); MUCUS, URINE SMALL (NEGATIVE); NITRITE, URINE AUTO NEGATIVE (NEGATIVE); PROTEIN, URINE AUTO NEGATIVE (NEGATIVE); RBC, URINE AUTO 6 /HPF (0-3); SPECIFIC GRAVITY URINE AUTO 1.013 (1.002-1.035); SQUAMOUS EPITHELIAL CELL UR AU 0 /HPF (0-6); UROBILINOGEN, URINE AUTO 0.2 mg/dL (0.0-2.0); WBC, URINE AUTO 41 /HPF (0-3)
[2020-12-13 12:53] LABS: BASO % 0.4 % (0.0-1.0); EOS # 0.1 10^3/uL (0.0-0.5); EOS % 1.8 % (0.0-3.0); HEMATOCRIT 40.4 % (36.0-47.0); HEMOGLOBIN 12.6 g/dl (12.0-15.5); LYMPH # 1.4 10^3/uL (1.5-5.0); LYMPH % 28.8 % (24.0-44.0); MEAN CORPUSCULAR HEMOGLOBIN 28.6 pg (27.0-33.0); MEAN CORPUSCULAR HGB CONC 31.2 g/dl (32.0-36.5); MEAN CORPUSCULAR VOLUME 91.6 fl (80.0-96.0); MONO # 0.4 10^3/uL (0.0-0.8); MONO % 7.1 % (2.0-8.0); NEUTROPHILS % 61.7 % (36.0-66.0); PLATELET COUNT, AUTOMATED 192 10^3/uL (150-450); RED BLOOD COUNT 4.41 10^6/uL (4.00-5.40); WHITE BLOOD COUNT 4.9 10^3/uL (4.0-10.0)
[2020-12-13 13:32] LABS: ALBUMIN 3.8 GM/DL (3.2-5.2); ALT/SGPT 20 U/L (12-78); BILIRUBIN,TOTAL 0.5 MG/DL (0.2-1.0); BLOOD UREA NITROGEN 10 MG/DL (7-18); CALCIUM LEVEL 9.7 MG/DL (8.5-10.1); CARBON DIOXIDE LEVEL 26 MEQ/L (21-32); CHLORIDE LEVEL 108 MEQ/L (98-107); CHOLESTEROL LEVEL 213 MG/DL (<200); CHOLESTEROL RISK RATIO 3.179 (<5); FREE T4 0.88 NG/DL (0.76-1.46); GLOMERULAR FILTRATION RATE > 60.0 (>51); GLUCOSE, FASTING 78 MG/DL (70-100); HDL CHOLESTEROL 67 MG/DL (>40); LDL CHOLESTEROL 126 MG/DL (<100); NON-HDL-C 146 MG/DL; POTASSIUM SERUM 4.2 MEQ/L (3.5-5.1); SODIUM LEVEL 142 MEQ/L (136-145); THYROID STIMULATING HORMONE 0.684 uIU/ML (0.358-3.740); TRIGLYCERIDES LEVEL 98 MG/DL (<150)
== END ==
LOC: M LAB 12:19
PROVIDERS: ATTEND Nurse Practitioner Family
DX: I10 Essential (primary) hypertension (principal)

== ENCOUNTER → 2020-12-29 | Outpatient (CLI) | payer MEDICARE ==
--- NOTE | 2020-12-29 09:57 | REP ---
INDICATION: PAIN IN R WRIST, S/P HEAVY OBJECT FELL ONTO RADIAL ASPECT COMPARISON: None. TECHNIQUE: AP, lateral, bilateral oblique views right wrist. FINDINGS: The carpal bones, surrounding osseous structures, soft tissues, and joint spaces are normal. There is no evidence for acute fracture or dislocation. No subcutaneous emphysema or radiodense foreign body. IMPRESSION: No acute fracture or dislocation. <Electronically signed by Misha Benjamin > 12/29/20 0953
== END ==
LOC: M ADAMS 09:40
PROVIDERS: ATTEND Nurse Practitioner Family
DX: M25.531 Pain in right wrist (principal)

== ENCOUNTER → 2021-04-07 | Outpatient (CLI) | payer MEDICARE ==
--- NOTE | 2021-04-07 16:01 | REP ---
INDICATION: CYST OF KIDNEY. COMPARISON: 03/12/2019. TECHNIQUE: Real-time sonographic evaluation of the kidneys is performed. FINDINGS: Renal cortical echogenicity pattern is normal bilaterally and contours are smooth. There is no hydronephrosis bilaterally. There is a cyst of the upper pole the left kidney 5.9 x 4.8 x 4.2 centimetres. This is essentially unchanged. Extrarenal pelvis is again seen bilaterally unchanged. The right kidney measures 10.1 x 4.6 x 4.6 cm. Left renal dimensions are 10.4 x 4.3 x 4.4 cm. The urinary bladder is unremarkable. Ureteral jets are not seen in the urinary bladder with Doppler color evaluation. IMPRESSION: Stable left renal cyst. <Electronically signed by Llaito Park > 04/07/21 0999
== END ==
LOC: M RAD 09:58
PROVIDERS: ATTEND Nurse Practitioner Women's Health
DX: N28.1 Cyst of kidney, acquired (principal)

== ENCOUNTER → 2021-04-12 | Outpatient (REF) | payer MEDICARE ==
[2021-04-12 18:31] LABS: APPEARANCE, URINE CLOUDY (CLEAR); BACTERIA, URINE AUTO NEGATIVE (NEGATIVE); BILIRUBIN, URINE AUTO NEGATIVE (NEGATIVE); BLOOD, URINE BLOOD 2+ (NEGATIVE); COLOR, URINE YELLOW (YELLOW); GLUCOSE, URINE (UA) AUTO NEGATIVE (NEGATIVE); KETONE, URINE AUTO NEGATIVE (NEGATIVE); LEUKOCYTE ESTERASE, URINE AUTO 2+ (NEGATIVE); MUCUS, URINE SMALL (NEGATIVE); NITRITE, URINE AUTO NEGATIVE (NEGATIVE); PROTEIN, URINE AUTO NEGATIVE (NEGATIVE); RBC, URINE AUTO 8 /HPF (0-3); SPECIFIC GRAVITY URINE AUTO 1.021 (1.002-1.035); SQUAMOUS EPITHELIAL CELL UR AU 3 /HPF (0-6); UROBILINOGEN, URINE AUTO 0.2 mg/dL (0.0-2.0); WBC, URINE AUTO 25 /HPF (0-3)
== END ==
LOC: M SMT 16:54
PROVIDERS: ATTEND Nurse Practitioner Women's Health
DX: R39.15 Urgency of urination (principal)
CPT/HCPCS: 81001; 87088; 87186; G0463

== ENCOUNTER → 2021-06-30 | Outpatient (CLI) | payer MEDICARE ==
[2021-06-30 10:44] LABS: BASO % 0.5 % (0.0-1.0); EOS # 0.1 10^3/uL (0.0-0.5); EOS % 1.4 % (0.0-3.0); HEMOGLOBIN 13.4 g/dl (12.0-15.5); LYMPH # 1.3 10^3/uL (1.5-5.0); LYMPH % 28.6 % (24.0-44.0); MEAN CORPUSCULAR HEMOGLOBIN 29.5 pg (27.0-33.0); MEAN CORPUSCULAR HGB CONC 31.9 g/dl (32.0-36.5); MEAN CORPUSCULAR VOLUME 92.3 fl (80.0-96.0); MONO # 0.3 10^3/uL (0.0-0.8); MONO % 7.3 % (2.0-8.0); NEUTROPHILS # 2.7 10^3/uL (1.5-8.5); PLATELET COUNT, AUTOMATED 190 10^3/uL (150-450); RED BLOOD COUNT 4.55 10^6/uL (4.00-5.40); WHITE BLOOD COUNT 4.4 10^3/uL (4.0-10.0)
[2021-06-30 11:06] LABS: HEMOGLOBIN A1c 5.6 %
[2021-06-30 11:22] LABS: ALBUMIN 3.5 GM/DL (3.2-5.2); ALT/SGPT 22 U/L (12-78); BILIRUBIN,TOTAL 0.4 MG/DL (0.2-1.0); BLOOD UREA NITROGEN 13 MG/DL (7-18); CALCIUM LEVEL 9.2 MG/DL (8.5-10.1); CARBON DIOXIDE LEVEL 31 MEQ/L (21-32); CHLORIDE LEVEL 107 MEQ/L (98-107); CREATININE FOR GFR 0.68 MG/DL (0.55-1.30); GLOMERULAR FILTRATION RATE > 60.0 (>51); GLUCOSE, FASTING 82 MG/DL (70-100); POTASSIUM SERUM 4.2 MEQ/L (3.5-5.1); RHEUMATOID FACTOR QUANT < 10.0 IU/ML (<15.0); SODIUM LEVEL 142 MEQ/L (136-145); THYROID STIMULATING HORMONE 0.547 uIU/ML (0.358-3.740); TOTAL PROTEIN 6.6 GM/DL (6.4-8.2); VITAMIN B12 LEVEL 274 PG/ML
[2021-06-30 11:24] LABS: FOLATE 9.7 NG/ML
[2021-06-30 11:52] LABS: ERYTHROCYTE SEDIMENTATION RATE 10 mm/hr (0-30)
[2021-07-04 08:53] LABS: ALBUMIN % 61.4 % (55.8-66.1); ALPHA-1-GLOBULIN % 4.3 % (2.9-4.9)
[2021-07-04 08:54] LABS: ALBUMIN 4.05 GM/DL (3.29-5.55); ALPHA-1-GLOBULINS 0.28 GM/DL (0.17-0.41); ALPHA-2-GLOBULINS 0.67 GM/DL (0.42-0.99); ALPHA-2-GLOBULINS % 10.1 % (7.1-11.8); BETA-1-GLOBULINS 0.42 GM/DL (0.28-0.60); BETA-1-GLOBULINS % 6.4 % (4.7-7.2); BETA-2-GLOBULINS 0.31 GM/DL (0.19-0.55); BETA-2-GLOBULINS % 4.7 % (3.2-6.5); GAMMA GLOBULIN % 13.1 % (11.1-18.8); GAMMA GLOBULINS 0.86 GM/DL (0.65-1.58)
[2021-07-10 00:06] LABS: ANTINUCLEAR ANTIBODIES DIRECT Negative (Negative); CERULOPLASMIN 22.4 mg/dL (19.0-39.0); COPPER PLASMA 99 ug/dL (80-158); LEAD BLOOD ADULT 1 ug/dL (0-4); MERCURY LEVEL <1.0 ug/L (0.0-14.9); VITAMIN B1 LEVEL WHOLE BLOOD 128.2 nmol/L (66.5-200.0); VITAMIN B6,PYRIDOXAL PHOSPHATE 7.4 ug/L (2.0-32.8); VITAMIN E(ALPHA TOCOPHEROL) 11.6 mg/L (7.0-25.1); VITAMIN E(GAMMA TOCOPHEROL) 2.8 mg/L (0.5-5.5)
== END ==
LOC: M LAB 09:28
PROVIDERS: ATTEND Psychiatry & Neurology Neurology
DX: G60.9 Hereditary and idiopathic neuropathy, unspecified (principal); R25.1 Tremor, unspecified; Z79.899 Other long term (current) drug therapy; R39.9 Unspecified symptoms and signs involving the genitourinary system; Z11.3 Encounter for screening for infections with a predominantly sexual mode of transmission; A50.9 Congenital syphilis, unspecified; Z13.88 Encounter for screening for disorder due to exposure to contaminants; I11.0 Hypertensive heart disease with heart failure

== ENCOUNTER → 2021-08-22 | Outpatient (CLI) | payer MEDICARE ==
--- NOTE | 2021-08-22 17:20 | REPVR ---
PROCEDURE INFORMATION: Exam: CT Head Without Contrast Exam date and time: 08/22/2021 1:18 PM Age: 60 years old Clinical indication: Other: Tremors; Additional info: Tremor w/ migraine TECHNIQUE: Imaging protocol: Computed tomography of the head without contrast. Radiation optimization: All CT scans at this facility use at least one of these dose optimization techniques: automated exposure control; mA and/or kV adjustment per patient size (includes targeted exams where dose is matched to clinical indication); or iterative reconstruction. COMPARISON: CT Head without contrast 08/15/2018 12:39 PM FINDINGS: Brain: No intracranial hemorrhage or extra-axial fluid collection. No evidence of mass effect or midline shift. Park-white matter differentiation is intact. Cerebral ventricles: No ventriculomegaly. Paranasal sinuses: Visualized sinuses are unremarkable. No fluid levels. Mastoid air cells: Unremarkable. Bones/joints: No acute osseus lesion or fracture. Soft tissues: Unremarkable. IMPRESSION: No acute intracranial pathology. Electronically signed by: Geoff Miramontes On 08/22/2021 17:19:53 PM
== END ==
LOC: M PLAIMG 12:37
PROVIDERS: ATTEND Physician Assistant Medical
DX: G25.0 Essential tremor (principal); G43.709 Chronic migraine without aura, not intractable, without status migrainosus; R26.81 Unsteadiness on feet

== ENCOUNTER → 2021-10-04 | Outpatient (CLI) | payer MEDICARE ==
[~2021-10-04] MED LIST changes: +ISOVUE-370 76% 100ML VIAL ONE
--- NOTE | 2021-10-04 14:16 | REPVR ---
PROCEDURE INFORMATION: Exam: CT Head Without And With Contrast Exam date and time: 10/04/2021 10:18 AM Age: 61 years old Clinical indication: Condition or disease; Other: Tremors; Additional info: Tremor TECHNIQUE: Imaging protocol: Computed tomography of the head without and with intravenous contrast. Radiation optimization: All CT scans at this facility use at least one of these dose optimization techniques: automated exposure control; mA and/or kV adjustment per patient size (includes targeted exams where dose is matched to clinical indication); or iterative reconstruction. Contrast material: ISOVUE 370; Contrast volume: 100 ml; Contrast route: INTRAVENOUS (IV); COMPARISON: CT Head without contrast 08/22/2021 12:43 PM FINDINGS: Brain: There is no acute hemorrhage or mass effect. Mild diffuse volume loss is within the range of normal for patient age. The normal klein/white matter delineation is maintained. There is no abnormal enhancement within the brain. Cerebral ventricles: No ventriculomegaly. Paranasal sinuses: Visualized sinuses are unremarkable. No fluid levels. Mastoid air cells: Visualized mastoid air cells are well aerated. Bones/joints: Unremarkable. No acute fracture. Soft tissues: Unremarkable. IMPRESSION: No acute intracranial abnormality. Electronically signed by: Yasmeen Mims On 10/04/2021 14:15:54 PM
== END ==
LOC: M PLAIMG 09:41
PROVIDERS: ATTEND Psychiatry & Neurology Neurology
DX: G25.0 Essential tremor (principal)
CPT/HCPCS: 70470; Q9967

== ENCOUNTER → 2022-04-12 | Outpatient (CLI) | payer MEDICARE ==
[~2022-04-12] MED LIST changes: -ISOVUE-370 76% 100ML VIAL ONE
== END ==
LOC: M RAD 07:51
PROVIDERS: ATTEND Nurse Practitioner Women's Health
DX: N28.1 Cyst of kidney, acquired (principal)

== ENCOUNTER → 2022-04-25 | Outpatient (CLI) | payer MEDICARE | LOC: M WHC 08:03 | PROVIDERS: ATTEND Nurse Practitioner Family | DX: Z12.31 Encounter for screening mammogram for malignant neoplasm of breast (principal); Z95.0 Presence of cardiac pacemaker ==

== ENCOUNTER → 2022-08-03 | Outpatient (REF) | payer MEDICARE | LOC: M LAB REF 13:00 | PROVIDERS: ATTEND Nurse Practitioner Family | DX: N39.0 Urinary tract infection, site not specified (principal) ==

== ENCOUNTER → 2022-08-10 | Outpatient (CLI) | payer MEDICARE ==
[2022-08-10 10:34] LABS: BASO % 0.4 % (0.0-1.0); EOS # 0.1 10^3/uL (0.0-0.5); EOS % 1.1 % (0.0-3.0); HEMATOCRIT 42.2 % (36.0-47.0); HEMOGLOBIN 13.2 g/dl (12.0-15.5); LYMPH # 1.8 10^3/uL (1.5-5.0); LYMPH % 32.5 % (24.0-44.0); MEAN CORPUSCULAR HEMOGLOBIN 29.2 pg (27.0-33.0); MEAN CORPUSCULAR HGB CONC 31.3 g/dl (32.0-36.5); MEAN CORPUSCULAR VOLUME 93.4 fl (80.0-96.0); MONO # 0.4 10^3/uL (0.0-0.8); MONO % 7.6 % (2.0-8.0); NEUTROPHILS # 3.2 10^3/uL (1.5-8.5); NEUTROPHILS % 58.2 % (36.0-66.0); PLATELET COUNT, AUTOMATED 200 10^3/uL (150-450); RED BLOOD COUNT 4.52 10^6/uL (4.00-5.40); WHITE BLOOD COUNT 5.4 10^3/uL (4.0-10.0)
[2022-08-10 11:17] LABS: BLOOD UREA NITROGEN 17 MG/DL (7-18); CALCIUM LEVEL 9.3 MG/DL (8.8-10.2); CARBON DIOXIDE LEVEL 30 MEQ/L (21-32); CHLORIDE LEVEL 107 MEQ/L (98-107); CREATININE FOR GFR 0.87 MG/DL (0.55-1.30); FERRITIN 118 NG/ML (8-252); FREE T4 0.92 NG/DL (0.76-1.46); GLOMERULAR FILTRATION RATE > 60.0 (>45); GLUCOSE, FASTING 92 MG/DL (70-100); IRON (FE) 82 UG/DL (50-170); PERCENT SATURATION 20.5 % (13.2-45.0); POTASSIUM SERUM 4.9 MEQ/L (3.5-5.1); SODIUM LEVEL 141 MEQ/L (136-145); TOTAL IRON BINDING CAPACITY 400 UG/DL (250-450)
[2022-08-10 11:46] LABS: TOTAL 25(OH) VITAMIN D 24.6 NG/ML (30.0-100.0)
== END ==
LOC: M LAB 09:50
PROVIDERS: ATTEND Nurse Practitioner Family
DX: N39.0 Urinary tract infection, site not specified (principal); M54.50 Low back pain, unspecified; R53.83 Other fatigue; Z79.899 Other long term (current) drug therapy

== ENCOUNTER → 2022-08-13 | Outpatient (CLI) | payer MEDICARE | LOC: M PLAIMG 09:00 | PROVIDERS: ATTEND Nurse Practitioner Family | DX: M54.50 Low back pain, unspecified (principal); N39.0 Urinary tract infection, site not specified; Z90.49 Acquired absence of other specified parts of digestive tract; K57.30 Diverticulosis of large intestine without perforation or abscess without bleeding; N32.89 Other specified disorders of bladder ==

== ENCOUNTER → 2022-08-20 | Outpatient (CLI) | payer MEDICARE ==
[2022-08-20 12:39] LABS: BASO % 0.2 % (0.0-1.0); EOS # 0.1 10^3/uL (0.0-0.5); EOS % 1.5 % (0.0-3.0); HEMOGLOBIN 12.7 g/dl (12.0-15.5); LYMPH # 1.4 10^3/uL (1.5-5.0); LYMPH % 31.2 % (24.0-44.0); MEAN CORPUSCULAR HEMOGLOBIN 29.5 pg (27.0-33.0); MEAN CORPUSCULAR HGB CONC 31.8 g/dl (32.0-36.5); MEAN CORPUSCULAR VOLUME 92.8 fl (80.0-96.0); MONO # 0.4 10^3/uL (0.0-0.8); MONO % 8.5 % (2.0-8.0); NEUTROPHILS # 2.7 10^3/uL (1.5-8.5); NEUTROPHILS % 58.4 % (36.0-66.0); PLATELET COUNT, AUTOMATED 211 10^3/uL (150-450); RED BLOOD COUNT 4.31 10^6/uL (4.00-5.40); WHITE BLOOD COUNT 4.6 10^3/uL (4.0-10.0)
[2022-08-20 13:22] LABS: ALBUMIN 3.7 GM/DL (3.2-5.2); BILIRUBIN,TOTAL 0.4 MG/DL (0.2-1.0); CALCIUM LEVEL 9.5 MG/DL (8.8-10.2); CREATININE FOR GFR 1.05 MG/DL (0.55-1.30); GLOMERULAR FILTRATION RATE 56.9 (>45); POTASSIUM SERUM 4.7 MEQ/L (3.5-5.1); TOTAL PROTEIN 6.9 GM/DL (6.4-8.2)
== END ==
LOC: M LAB 12:06
PROVIDERS: ATTEND Nurse Practitioner Family
DX: N39.0 Urinary tract infection, site not specified (principal)

== ENCOUNTER → 2022-09-07 | Outpatient (REF) | payer MEDICARE | LOC: M LAB REF 12:59 | PROVIDERS: ATTEND Nurse Practitioner Family | DX: N39.0 Urinary tract infection, site not specified (principal); M54.50 Low back pain, unspecified ==

== ENCOUNTER → 2022-12-10 | Outpatient (CLI) | payer MEDICARE ==
[2022-12-10 11:10] LABS: ALBUMIN 3.6 G/DL (3.2-5.2); ALKALINE PHOSPHATASE 46 U/L (46-116); ALT/SGPT 16 U/L (7.0-40); AST/SGOT 15 U/L (<34); BILIRUBIN,TOTAL 0.8 MG/DL (0.3-1.2); BLOOD UREA NITROGEN 17 MG/DL (9-23); CARBON DIOXIDE LEVEL 30 MMOL/L (20-31); CHLORIDE LEVEL 104 MMOL/L (98-107); CHOLESTEROL LEVEL 199 MG/DL (<200); CHOLESTEROL RISK RATIO 3.33 (<5); GLOMERULAR FILTRATION RATE > 60.0 (>45); GLUCOSE, FASTING 85 MG/DL (74-106); HDL CHOLESTEROL 59.6 MG/DL (>40); LDL CHOLESTEROL 120.4 MG/DL (<100); NON-HDL-C 139 MG/DL; POTASSIUM SERUM 4.2 MMOL/L (3.5-5.1); SODIUM LEVEL 141 MMOL/L (136-145); TOTAL 25(OH) VITAMIN D 19.1 NG/ML (20.0-100.0); TOTAL PROTEIN 6.4 G/DL (5.7-8.2); TRIGLYCERIDES LEVEL 95 MG/DL (<150)
== END ==
LOC: M LAB 09:08
PROVIDERS: ATTEND Nurse Practitioner Family
DX: I10 Essential (primary) hypertension (principal); E78.5 Hyperlipidemia, unspecified; E55.9 Vitamin D deficiency, unspecified

== ENCOUNTER → 2022-12-12 | Outpatient (REF) | payer MEDICARE | LOC: M LAB REF 17:15 | PROVIDERS: ATTEND Nurse Practitioner Family | DX: R31.9 Hematuria, unspecified (principal); M54.50 Low back pain, unspecified ==

== ENCOUNTER → 2023-03-27 | Outpatient (CLI) | payer MEDICARE ==
[~2023-03-27] MED LIST changes: +FLUT50SP17; -FLUTISP
== END ==
LOC: M RAD 13:29
PROVIDERS: ATTEND Physician Assistant
DX: N13.30 Unspecified hydronephrosis (principal)

== ENCOUNTER → 2023-04-02 | Outpatient (REF) | payer MEDICARE ==
[2023-04-02 18:30] LABS: APPEARANCE, URINE HAZY (CLEAR); BACTERIA, URINE AUTO NEGATIVE (NEGATIVE); BILIRUBIN, URINE AUTO NEGATIVE (NEGATIVE); BLOOD, URINE BLOOD 2+ (NEGATIVE); COLOR, URINE YELLOW (YELLOW); GLUCOSE, URINE (UA) AUTO NEGATIVE (NEGATIVE); KETONE, URINE AUTO NEGATIVE (NEGATIVE); LEUKOCYTE ESTERASE, URINE AUTO NEGATIVE (NEGATIVE); MUCUS, URINE SMALL (NEGATIVE); NITRITE, URINE AUTO NEGATIVE (NEGATIVE); PROTEIN, URINE AUTO NEGATIVE (NEGATIVE); RBC, URINE AUTO 1 /HPF (0-3); SPECIFIC GRAVITY URINE AUTO 1.015 (1.002-1.035); SQUAMOUS EPITHELIAL CELL UR AU 10 /HPF (0-6); UROBILINOGEN, URINE AUTO 0.2 mg/dL (0.0-2.0); WBC, URINE AUTO 1 /HPF (0-3)
== END ==
LOC: M SMT 17:32
PROVIDERS: ATTEND Urology
DX: R31.29 Other microscopic hematuria (principal)

== ENCOUNTER → 2023-04-24 | Outpatient (REF) | payer MEDICARE ==
[2023-04-24 18:00] LABS: APPEARANCE, URINE MANUAL CLOUDY (CLEAR)
[2023-04-24 18:01] LABS: BILIRUBIN, URINE MANUAL NEGATIVE (NEGATIVE); BLOOD URINE MANUAL POSITIVE (NEGATIVE); COLOR, URINE MANUAL YELLOW (YELLOW); GLUCOSE, URINE (UA) MANUAL NEGATIVE (NEGATIVE); KETONE, URINE MANUAL NEGATIVE (NEGATIVE); NITRITE, URINE MANUAL NEGATIVE (NEGATIVE); PROTEIN, URINE MANUAL NEGATIVE (NEGATIVE); UROBILINOGEN, URINE MANUAL NORMAL (NORMAL)
[2023-04-24 18:02] LABS: LEUKOCYTE ESTERASE, URINE MAN TRACE (NEGATIVE)
[2023-04-24 19:29] LABS: AMORPHOUS SEDIMENT, URINE LARGE AMOUNT (NEGATIVE); BACTERIA, URINE SMALL AMOUNT; CALCIUM OXALATE CRYSTALS,URINE SMALL AMOUNT /hpf; MUCUS, URINE MOD AMOUNT (NEGATIVE); SQUAMOUS EPITHELIAL CELL URINE SMALL AMOUNT /hpf (SMALL AMT)
[2023-04-24 19:30] LABS: RBC, URINE 0-1 /hpf (0-3)
[2023-04-24 19:31] LABS: HYALINE CAST, URINE 0-1 /lpf (0-1)
== END ==
LOC: M SMT 17:10
PROVIDERS: ATTEND Urology
DX: R31.29 Other microscopic hematuria (principal)

== ENCOUNTER → 2023-05-06 | Outpatient (CLI) | payer MEDICARE ==
[~2023-05-06] MED LIST changes: +ISOVUE-300 61% 100ML VIAL As Ordered ONE; +LIDOCAINE 1% MDV 20ML VIAL As Ordered ONE; +TRIAMCINOLONE ACETONIDE SUSP 40MG/ML 1ML VIAL As Ordered ONE
== END ==
LOC: M RAD 13:53
PROVIDERS: ATTEND Physician Assistant
DX: M70.61 Trochanteric bursitis, right hip (principal); S63.502D Unspecified sprain of left wrist, subsequent encounter
CPT/HCPCS: 27093; 73200; 77002; J3301; Q9967

== ENCOUNTER → 2023-05-21 | Outpatient (CLI) | payer MEDICARE ==
[~2023-05-21] MED LIST changes: -ISOVUE-300 61% 100ML VIAL As Ordered ONE; +ISOVUE-370 76% 100ML VIAL ONE; -LIDOCAINE 1% MDV 20ML VIAL As Ordered ONE; -TRIAMCINOLONE ACETONIDE SUSP 40MG/ML 1ML VIAL As Ordered ONE
== END ==
LOC: M PLAIMG 12:24
PROVIDERS: ATTEND Physician Assistant
DX: S63.502D Unspecified sprain of left wrist, subsequent encounter (principal)
CPT/HCPCS: 73201; Q9967

== ENCOUNTER → 2023-05-29 | Outpatient (CLI) | payer MEDICARE ==
[~2023-05-29] MED LIST changes: -ISOVUE-370 76% 100ML VIAL ONE
== END ==
LOC: M RAD 11:06
PROVIDERS: ATTEND Psychiatry & Neurology Neurology
DX: R20.2 Paresthesia of skin (principal)

== ENCOUNTER → 2023-06-12 | Outpatient (CLI) | payer MEDICARE | LOC: M WHC 13:17 | PROVIDERS: ATTEND Nurse Practitioner Family | DX: Z12.31 Encounter for screening mammogram for malignant neoplasm of breast (principal); Z95.0 Presence of cardiac pacemaker ==

== ENCOUNTER → 2023-08-20 | Outpatient (CLI) | payer MEDICARE ==
[2023-08-20 09:33] LABS: BASO % 0.2 % (0.0-1.0); EOS # 0.1 10^3/uL (0.0-0.5); EOS % 1.9 % (0.0-3.0); HEMOGLOBIN 12.7 g/dl (12.0-15.5); LYMPH # 1.3 10^3/uL (1.5-5.0); MEAN CORPUSCULAR HEMOGLOBIN 29.8 pg (27.0-33.0); MEAN CORPUSCULAR HGB CONC 31.8 g/dl (32.0-36.5); MEAN CORPUSCULAR VOLUME 93.9 fl (80.0-96.0); MONO # 0.4 10^3/uL (0.0-0.8); NEUTROPHILS # 2.3 10^3/uL (1.5-8.5); NEUTROPHILS % 56.4 % (36.0-66.0); PLATELET COUNT, AUTOMATED 237 10^3/uL (150-450); RED BLOOD COUNT 4.26 10^6/uL (4.00-5.40); WHITE BLOOD COUNT 4.1 10^3/uL (4.0-10.0)
[2023-08-20 09:54] LABS: ALBUMIN 3.3 G/DL (3.2-5.2); ALKALINE PHOSPHATASE 51 U/L (46-116); ALT/SGPT 15 U/L (7.0-40); AST/SGOT 16 U/L (<34); BILIRUBIN,TOTAL 0.3 MG/DL (0.3-1.2); BLOOD UREA NITROGEN 12 MG/DL (9-23); CALCIUM LEVEL 9.9 MG/DL (8.3-10.6); CARBON DIOXIDE LEVEL 29 MMOL/L (20-31); CHLORIDE LEVEL 107 MMOL/L (98-107); CREATININE FOR GFR 0.88 MG/DL (0.55-1.30); GLOMERULAR FILTRATION RATE > 60.0 (>45); GLUCOSE, FASTING 90 MG/DL (74-106); POTASSIUM SERUM 4.8 MMOL/L (3.5-5.1); SODIUM LEVEL 142 MMOL/L (136-145); TOTAL PROTEIN 6.4 G/DL (5.7-8.2)
== END ==
LOC: M LAB 09:06
PROVIDERS: ATTEND Nurse Practitioner Family
DX: R10.32 Left lower quadrant pain (principal)

== ENCOUNTER 2023-09-06 13:51 | Observation (INO) | payer MEDICARE ==
[~2023-09-06] VITALS: Ht 162.6 cm; Wt 100.6 kg
[~2023-09-06 13:51] MED LIST changes: -CETI5TA PO; -ELIQ5TAB PO; -METO50TA7 PO; -PRED10TA2 PO; -VENTAER INH
[2023-09-06] MEDS ORDERED: ISOVUE-370 76% 100ML VIAL As Ordered ONE (16:03)
[2023-09-06] MEDS ORDERED: ENOXAPARIN 100MG/1ML SYRINGE (J1650 PER 10MG) SC ONE (17:10)
[2023-09-06] MEDS ORDERED: ACETAMINOPHEN TAB 650MG DOSE (2X325MG) PO PRN (18:00)
[2023-09-06 18:06] LABS: CK-MB VALUE MASS 1.5 NG/ML (<3.6)
[2023-09-06 18:07] LABS: MB/CK RELATIVE INDEX 1.7 (< OR =4)
[2023-09-06] MEDS ORDERED: PRED10TA2 PO (18:15)
[2023-09-06] MEDS ORDERED: METO50TA7 PO (18:15)
[2023-09-06] MEDS ORDERED: CETI5TA PO (18:15)
[2023-09-06] MEDS ORDERED: HOME MED LIST COMPLETE! XX SCH (18:20)
[2023-09-06 18:45] LABS: VENOUS BASE EXCESS -1.7 (-2.0-2.0); VENOUS HCO3 24.5 MMOL/L (23.0-27.0); VENOUS O2 SATURATION 61.2 % (60.0-80.0); VENOUS PARTIAL PRESSURE CO2 46.6 mmHg (38.0-50.0); VENOUS PARTIAL PRESSURE O2 31.6 mmHg (30.0-50.0); VENOUS PH 7.338 UNITS (7.330-7.430); VENOUS STANDARD HCO3 22.2 MMOL/L; VENOUS TOTAL CO2 25.9 MMOL/L (24.0-28.0)
[2023-09-06] MEDS ORDERED: ENOXAPARIN 100MG/1ML SYRINGE (J1650 PER 10MG) SC SCH (18:50)
[2023-09-06 19:08] LABS: RSV AMPLIFICATION NEGATIVE (NEGATIVE)
[2023-09-06 19:21] LABS: INR 0.97; PROTHROMBIN TIME 12.6 SECONDS (12.5-14.5)
[2023-09-06 19:25] LABS: BASO % 0.1 % (0.0-1.0); EOS % 0.1 % (0.0-3.0); HEMATOCRIT 41.7 % (36.0-47.0); HEMOGLOBIN 13.4 g/dl (12.0-15.5); LYMPH # 0.6 10^3/uL (1.5-5.0); LYMPH % 8.7 % (24.0-44.0); MEAN CORPUSCULAR HEMOGLOBIN 29.9 pg (27.0-33.0); MEAN CORPUSCULAR HGB CONC 32.1 g/dl (32.0-36.5); MEAN CORPUSCULAR VOLUME 93.1 fl (80.0-96.0); MONO # 0.1 10^3/uL (0.0-0.8); MONO % 1.5 % (2.0-8.0); NEUTROPHILS # 6.4 10^3/uL (1.5-8.5); NEUTROPHILS % 89.5 % (36.0-66.0); PLATELET COUNT, AUTOMATED 233 10^3/uL (150-450); RED BLOOD COUNT 4.48 10^6/uL (4.00-5.40); WHITE BLOOD COUNT 7.1 10^3/uL (4.0-10.0)
[2023-09-06 20:30] VITALS: BP 124/82; TEMP 98.2; O2SAT 94
[2023-09-06] MEDS: METOPROLOL TART 50 MG TAB PO SCH (23:04)
[2023-09-07 05:20] VITALS: BP 124/81; TEMP 97.9; O2SAT 96
[2023-09-07 05:37] LABS: HEMATOCRIT 36.3 % (36.0-47.0); HEMOGLOBIN 11.6 g/dl (12.0-15.5); MEAN CORPUSCULAR HEMOGLOBIN 29.9 pg (27.0-33.0); MEAN CORPUSCULAR VOLUME 93.6 fl (80.0-96.0); PLATELET COUNT, AUTOMATED 210 10^3/uL (150-450); RED BLOOD COUNT 3.88 10^6/uL (4.00-5.40); WHITE BLOOD COUNT 7.3 10^3/uL (4.0-10.0)
[2023-09-07 06:06] LABS: BLOOD UREA NITROGEN 18 MG/DL (9-23); CALCIUM LEVEL 9.5 MG/DL (8.3-10.6); CARBON DIOXIDE LEVEL 28 MMOL/L (20-31); CHLORIDE LEVEL 107 MMOL/L (98-107); GLOMERULAR FILTRATION RATE > 60.0 (>45); GLUCOSE, FASTING 85 MG/DL (74-106); MAGNESIUM LEVEL 2.1 MG/DL (1.8-2.4); POTASSIUM SERUM 3.9 MMOL/L (3.5-5.1); SODIUM LEVEL 144 MMOL/L (136-145)
[2023-09-07] MEDS ORDERED: APIXABAN 5 MG TAB (ELIQUIS) PO SCH (09:00)
[2023-09-07 09:01] VITALS: BP 125/83
[2023-09-07] MEDS: METOPROLOL TART 50 MG TAB PO SCH (09:01)
[2023-09-07] MEDS ORDERED: ALBUTEROL 90 MCG/ACT 8GM HFA INHALER INH ONE (10:05)
[2023-09-07] MEDS ORDERED: ELIQ5TAB PO (10:36)
[2023-09-07] MEDS ORDERED: VENTAER INH (10:37)
[2023-09-07 14:00] VITALS: BP 132/84; TEMP 97.9; O2SAT 95
[2023-09-07] MEDS ORDERED: guaiFENesin SYRUP 200MG 10ML UDC PO ONE (14:00)
[2023-09-07] MEDS ORDERED: ALBUTEROL 90 MCG/ACT 8GM HFA INHALER INH PRN (14:00)
[2023-09-17 18:07] LABS: ANTI THROMBIN 3 ANTIGEN IMMUNO 107 % (72-124); ANTI THROMBIN 3 FUNCT ACTIVITY 123 % (75-135); CARDIOLIPIN IGA ANTIBODY <9 APL U/mL (0-11); CARDIOLIPIN IGG ANTIBODY <9 GPL U/mL (0-14); CARDIOLIPIN IGM ANTIBODY <9 MPL U/mL (0-12); PHOSPHOLIPIDS LEVEL 298 mg/dL (151-288); PROTEIN C FUNCTIONAL ACTIVITY 183 % (73-180); PROTEIN S FUNCTIONAL ACTIVITY 129 % (63-140)
[2023-09-18 10:24] LABS: PTT LUPUS TYPE ANTICOAG SCREEN 1.09 (0-1.20)
== END 2023-09-07 16:02 | disposition home or self-care (01) ==
LOC: M ED 13:51 → M ED INP 17:59 → M MSPAV 20:28
PROVIDERS: ADMIT Family Medicine; ATTEND Family Medicine
DX: I26.99 Other pulmonary embolism without acute cor pulmonale (principal); R05.9 Cough, unspecified; R06.02 Shortness of breath; Z95.818 Presence of other cardiac implants and grafts; Z79.01 Long term (current) use of anticoagulants; Z79.52 Long term (current) use of systemic steroids; Z79.899 Other long term (current) drug therapy; Z88.5 Allergy status to narcotic agent; Z88.1 Allergy status to other antibiotic agents
CPT/HCPCS: 36415; 71046; 71275; 80048; 80053; 81240; 81241; 82550; 82553; 82728; 82803; 83550; 83735; 83880; 84311; 84484; 85025; 85027; 85300; 85301; 85303; 85305; 85379; 85610; 85730; 86147; 87631; 93005; 93041; 93306; 93970; 94640; 94760; 96372; 99285; G0378; J1650; Q9967

== ENCOUNTER → 2023-09-06 | Outpatient (CLI) | payer MEDICARE ==
[~2023-09-06] MED LIST changes: +CETI5TA PO; +ELIQ5TAB PO; +METO50TA7 PO; +PRED10TA2 PO; +VENTAER INH
[2023-09-06 10:49] LABS: BASO % 0.4 % (0.0-1.0); EOS # 0.1 10^3/uL (0.0-0.5); EOS % 1.4 % (0.0-3.0); HEMATOCRIT 40.4 % (36.0-47.0); HEMOGLOBIN 12.9 g/dl (12.0-15.5); LYMPH # 1.3 10^3/uL (1.5-5.0); LYMPH % 22.1 % (24.0-44.0); MEAN CORPUSCULAR HEMOGLOBIN 29.7 pg (27.0-33.0); MEAN CORPUSCULAR HGB CONC 31.9 g/dl (32.0-36.5); MEAN CORPUSCULAR VOLUME 93.1 fl (80.0-96.0); MONO # 0.4 10^3/uL (0.0-0.8); MONO % 7.6 % (2.0-8.0); NEUTROPHILS # 3.9 10^3/uL (1.5-8.5); NEUTROPHILS % 68.3 % (36.0-66.0); PLATELET COUNT, AUTOMATED 214 10^3/uL (150-450); RED BLOOD COUNT 4.34 10^6/uL (4.00-5.40); WHITE BLOOD COUNT 5.7 10^3/uL (4.0-10.0)
[2023-09-06 11:12] LABS: ALBUMIN 3.9 G/DL (3.2-5.2); ALKALINE PHOSPHATASE 57 U/L (46-116); ALT/SGPT 14 U/L (7.0-40); AST/SGOT 14 U/L (<34); BILIRUBIN,TOTAL 0.5 MG/DL (0.3-1.2); BLOOD UREA NITROGEN 10 MG/DL (9-23); CALCIUM LEVEL 9.7 MG/DL (8.3-10.6); CARBON DIOXIDE LEVEL 33 MMOL/L (20-31); CHLORIDE LEVEL 103 MMOL/L (98-107); CREATININE FOR GFR 0.74 MG/DL (0.55-1.30); GLOMERULAR FILTRATION RATE > 60.0 (>45); GLUCOSE, FASTING 80 MG/DL (74-106); IRON (FE) 78 UG/DL (50-170); PERCENT SATURATION 20.5 % (13.2-45.0); SODIUM LEVEL 141 MMOL/L (136-145); TOTAL IRON BINDING CAPACITY 380 UG/DL (250-425); TOTAL PROTEIN 6.9 G/DL (5.7-8.2)
[2023-09-06 11:14] LABS: FERRITIN 79.1 NG/ML (7.3-270.7)
== END ==
LOC: M RAD 09:54
PROVIDERS: ATTEND Nurse Practitioner Family
DX: R05.9 Cough, unspecified (principal); R06.02 Shortness of breath; Z95.818 Presence of other cardiac implants and grafts

== ENCOUNTER → 2023-12-16 | Outpatient (CLI) | payer MEDICARE ==
[~2023-12-16] MED LIST changes: +CETI5TA PO; +ELIQ5TAB PO; -FLUT50SP17; +FLUTISP; +METO50TA7 PO; +PRED10TA2 PO; +VENTAER INH
[2023-12-16 10:32] LABS: ALBUMIN 3.8 G/DL (3.2-5.2); ALKALINE PHOSPHATASE 59 U/L (46-116); ALT/SGPT 20 U/L (7.0-40); AST/SGOT 15 U/L (<34); BILIRUBIN,TOTAL 0.7 MG/DL (0.3-1.2); BLOOD UREA NITROGEN 16 MG/DL (9-23); CALCIUM LEVEL 9.3 MG/DL (8.3-10.6); CARBON DIOXIDE LEVEL 29 MMOL/L (20-31); CHLORIDE LEVEL 106 MMOL/L (98-107); CHOLESTEROL LEVEL 205 MG/DL (<200); CHOLESTEROL RISK RATIO 4.22 (<5); GLOMERULAR FILTRATION RATE > 60.0 (>45); GLUCOSE, FASTING 90 MG/DL (74-106); HDL CHOLESTEROL 48.5 MG/DL (>40); LDL CHOLESTEROL 134.1 MG/DL (<100); NON-HDL-C 156.5 MG/DL; POTASSIUM SERUM 4.3 MMOL/L (3.5-5.1); SODIUM LEVEL 141 MMOL/L (136-145); TOTAL PROTEIN 6.5 G/DL (5.7-8.2); TRIGLYCERIDES LEVEL 112 MG/DL (<150)
[2023-12-16 10:46] LABS: TOTAL 25(OH) VITAMIN D 31.5 NG/ML (20.0-100.0)
== END ==
LOC: M LAB 09:10
PROVIDERS: ATTEND Nurse Practitioner Family
DX: I10 Essential (primary) hypertension (principal); E78.5 Hyperlipidemia, unspecified; E55.9 Vitamin D deficiency, unspecified

== ENCOUNTER → 2023-12-26 | Outpatient (REF) | payer MEDICARE | LOC: M LAB REF 16:54 | PROVIDERS: ATTEND Nurse Practitioner Family | DX: R35.0 Frequency of micturition (principal); R39.15 Urgency of urination ==

== ENCOUNTER → 2024-02-04 | Outpatient (CLI) | payer MEDICARE | LOC: M RAD 11:17 | PROVIDERS: ATTEND Registered Nurse | DX: T14.90XA Injury, unspecified, initial encounter (principal); W18.30XA Fall on same level, unspecified, initial encounter; Y92.9 Unspecified place or not applicable; Y93.9 Activity, unspecified; Y99.9 Unspecified external cause status ==

== ENCOUNTER → 2024-02-18 | Outpatient (CLI) | payer MEDICARE ==
[~2024-02-18] MED LIST changes: +ISOVUE-370 76% 100ML VIAL As Ordered ONE
[2024-02-18 10:30] LABS: BASO % 0.2 % (0.0-1.0); EOS # 0.1 10^3/uL (0.0-0.5); HEMATOCRIT 39.6 % (36.0-47.0); HEMOGLOBIN 12.8 g/dl (12.0-15.5); LYMPH # 1.2 10^3/uL (1.5-5.0); LYMPH % 24.1 % (24.0-44.0); MEAN CORPUSCULAR HEMOGLOBIN 29.4 pg (27.0-33.0); MEAN CORPUSCULAR HGB CONC 32.3 g/dl (32.0-36.5); MONO # 0.4 10^3/uL (0.0-0.8); MONO % 7.2 % (2.0-8.0); NEUTROPHILS # 3.4 10^3/uL (1.5-8.5); NEUTROPHILS % 67.3 % (36.0-66.0); PLATELET COUNT, AUTOMATED 186 10^3/uL (150-450); RED BLOOD COUNT 4.35 10^6/uL (4.00-5.40)
[2024-02-18 11:15] LABS: ALBUMIN 3.7 G/DL (3.2-5.2); ALKALINE PHOSPHATASE 93 U/L (46-116); ALT/SGPT 19 U/L (7.0-40); AST/SGOT 17 U/L (<34); BILIRUBIN,DIRECT 0.1 MG/DL (<0.4); BILIRUBIN,TOTAL 0.5 MG/DL (0.3-1.2); BLOOD UREA NITROGEN 13 MG/DL (9-23); CALCIUM LEVEL 9.7 MG/DL (8.3-10.6); CARBON DIOXIDE LEVEL 32 MMOL/L (20-31); CHLORIDE LEVEL 106 MMOL/L (98-107); CREATININE FOR GFR 0.83 MG/DL (0.55-1.30); GLOMERULAR FILTRATION RATE > 60.0 (>45); GLUCOSE, FASTING 105 MG/DL (74-106); POTASSIUM SERUM 3.7 MMOL/L (3.5-5.1); SODIUM LEVEL 142 MMOL/L (136-145); TOTAL PROTEIN 6.5 G/DL (5.7-8.2)
== END ==
LOC: M RAD 09:47
PROVIDERS: ATTEND Nurse Practitioner Family
DX: R07.89 Other chest pain (principal); Z90.49 Acquired absence of other specified parts of digestive tract; N28.1 Cyst of kidney, acquired; K57.30 Diverticulosis of large intestine without perforation or abscess without bleeding; R91.1 Solitary pulmonary nodule
CPT/HCPCS: 36415; 71260; 74177; 80053; 82248; 85025; Q9967

== ENCOUNTER → 2024-03-06 | Outpatient (CLI) | payer MEDICARE ==
[~2024-03-06] MED LIST changes: -ISOVUE-370 76% 100ML VIAL As Ordered ONE
[2024-03-06 09:23] LABS: EOS # 0.1 10^3/uL (0.0-0.5)
[2024-03-08 23:11] LABS: D001-IgE D pteronyssinus <0.10 kU/L (Class 0); E001-IgE Cat Epith/Dander < 0.10 kU/L (Class 0); E005-IgE Dog Dander < 0.10 kU/L (Class 0); G002-IgE Bermuda Grass < 0.10 kU/L (Class 0); M001-IgE Penicillium chrysogen < 0.10 kU/L (Class 0); M002 IgE Cladosporium herbaru < 0.10 kU/L (Class 0); M003 IgE Aspergillus fumigatu < 0.10 kU/L (Class 0); M006-IgE Alternaria alternata < 0.10 kU/L (Class 0); T001-IgE Maple/Box Elder < 0.10 kU/L (Class 0); T003-IgE Common Silver Birch < 0.10 kU/L (Class 0); T006-IgE Cedar, Mountain < 0.10 kU/L (Class 0); T007-IgE Oak, White < 0.10 kU/L (Class 0); T008-IgE Elm, American < 0.10 kU/L (Class 0); T015-IgE Ash, White < 0.10 kU/L (Class 0); T070-IgE White Mulberry < 0.10 kU/L (Class 0); W001-IgE Ragweed, Short < 0.10 kU/L (Class 0); W018-IgE Sheep Sorrel < 0.10 kU/L (Class 0)
== END ==
LOC: M LAB 08:54
PROVIDERS: ATTEND Internal Medicine Pulmonary Disease
DX: R05.3 Chronic cough (principal)

== ENCOUNTER → 2024-03-13 | Outpatient (CLI) | payer MEDICARE | LOC: M RAD 08:46 | PROVIDERS: ATTEND Internal Medicine Pulmonary Disease | DX: R05.3 Chronic cough (principal) ==

== ENCOUNTER → 2024-08-07 | Outpatient (REF) | payer MEDICARE ==
[~2024-08-07] MED LIST changes: +PANT40TA29
[2024-08-07 13:24] LABS: APPEARANCE, URINE CLEAR (CLEAR); BACTERIA, URINE AUTO NEGATIVE (NEGATIVE); BILIRUBIN, URINE AUTO NEGATIVE (NEGATIVE); BLOOD, URINE BLOOD 2+ (NEGATIVE); COLOR, URINE YELLOW (YELLOW); GLUCOSE, URINE (UA) AUTO NEGATIVE (NEGATIVE); KETONE, URINE AUTO NEGATIVE (NEGATIVE); LEUKOCYTE ESTERASE, URINE AUTO NEGATIVE (NEGATIVE); MUCUS, URINE SMALL (NEGATIVE); NITRITE, URINE AUTO NEGATIVE (NEGATIVE); PROTEIN, URINE AUTO NEGATIVE (NEGATIVE); RBC, URINE AUTO 5 /HPF (0-3); SPECIFIC GRAVITY URINE AUTO 1.014 (1.002-1.035); SQUAMOUS EPITHELIAL CELL UR AU 4 /HPF (0-6); UROBILINOGEN, URINE AUTO 0.2 mg/dL (0.0-2.0); WBC, URINE AUTO 1 /HPF (0-3)
== END ==
LOC: M LAB REF 12:32
PROVIDERS: ATTEND Nurse Practitioner Family
DX: N39.0 Urinary tract infection, site not specified (principal)

== ENCOUNTER → 2024-08-24 | Outpatient (CLI) | payer MEDICARE | LOC: M RAD 15:23 | PROVIDERS: ATTEND Nurse Practitioner Family | DX: R10.31 Right lower quadrant pain (principal); R31.9 Hematuria, unspecified ==

== ENCOUNTER → 2024-09-03 | Outpatient (CLI) | payer MEDICARE | LOC: M RAD 09:50 | PROVIDERS: ATTEND Nurse Practitioner Family | DX: M25.552 Pain in left hip (principal) ==

== ENCOUNTER → 2024-09-11 | Outpatient (CLI) | payer MEDICARE | LOC: M CARPUL 12:51 | PROVIDERS: ATTEND Internal Medicine Pulmonary Disease | DX: I26.99 Other pulmonary embolism without acute cor pulmonale (principal) ==

== ENCOUNTER → 2024-11-04 | Outpatient (CLI) | payer MEDICARE ==
[~2024-11-04] MED LIST changes: +ISOVUE-300 61% 100ML VIAL As Ordered ONE; +LIDOCAINE 1% MDV 20ML VIAL As Ordered ONE
== END ==
LOC: M RAD 09:42
PROVIDERS: ATTEND Orthopaedic Surgery
DX: M16.12 Unilateral primary osteoarthritis, left hip (principal)
CPT/HCPCS: 27093; 73701; 77002; Q9967

== ENCOUNTER → 2024-12-07 | Outpatient (CLI) | payer MEDICARE ==
[~2024-12-07] MED LIST changes: -ISOVUE-300 61% 100ML VIAL As Ordered ONE; -LIDOCAINE 1% MDV 20ML VIAL As Ordered ONE
[2024-12-07 11:18] LABS: HEMATOCRIT 39.6 % (36.0-47.0); HEMOGLOBIN 12.4 g/dl (12.0-15.5); MEAN CORPUSCULAR HEMOGLOBIN 28.3 pg (27.0-33.0); MEAN CORPUSCULAR HGB CONC 31.3 g/dl (32.0-36.5); MEAN CORPUSCULAR VOLUME 90.4 fl (80.0-96.0); PLATELET COUNT, AUTOMATED 157 10^3/uL (150-450); RED BLOOD COUNT 4.38 10^6/uL (4.00-5.40); WHITE BLOOD COUNT 5.5 10^3/uL (4.0-10.0)
[2024-12-07 11:55] LABS: ANISOCYTOSIS 1+; ATYPICAL LYMPH 15 % (0-5); BASOPHILS 1 % (0-1); EOSINOPHILS 4 % (0-3); LYMPHOCYTES 21 % (16-44); MONOCYTES 10 % (0-5); NEUTROPHILS 48 % (28-66); PLATELET ESTIMATE NORMAL (NORMAL); POIKILOCYTOSIS 1+; POLYCHROMASIA 1+
[2024-12-07 12:01] LABS: ALBUMIN 3.2 G/DL (3.2-5.2); ALKALINE PHOSPHATASE 76 U/L (35-104); ALT/SGPT 51 U/L (7.0-40); AST/SGOT 45 U/L (<34); BILIRUBIN,TOTAL 0.6 MG/DL (0.3-1.2); BLOOD UREA NITROGEN 10 MG/DL (9-23); CALCIUM LEVEL 8.8 MG/DL (8.3-10.6); CARBON DIOXIDE LEVEL 30 MMOL/L (20-31); CHLORIDE LEVEL 103 MMOL/L (98-107); CHOLESTEROL LEVEL 192 MG/DL (<200); CHOLESTEROL RISK RATIO 5.48 (<5); CREATININE FOR GFR 0.91 MG/DL (0.55-1.30); GLOMERULAR FILTRATION RATE > 60.0 (>45); GLUCOSE, FASTING 96 MG/DL (74-106); LDL CHOLESTEROL 117.6 MG/DL (<100); POTASSIUM SERUM 4.1 MMOL/L (3.5-5.1); SODIUM LEVEL 143 MMOL/L (136-145); TOTAL 25(OH) VITAMIN D 32.3 NG/ML (20.0-100.0); TOTAL PROTEIN 6.6 G/DL (5.7-8.2); TRIGLYCERIDES LEVEL 197 MG/DL (<150)
== END ==
LOC: M LAB 09:50
PROVIDERS: ATTEND Nurse Practitioner Family
DX: I10 Essential (primary) hypertension (principal); E78.5 Hyperlipidemia, unspecified; E55.9 Vitamin D deficiency, unspecified; I26.94 Multiple subsegmental thrombotic pulmonary emboli without acute cor pulmonale

== ENCOUNTER → 2024-12-15 | Outpatient (CLI) | payer MEDICARE ==
[2024-12-15 12:03] LABS: APPEARANCE, URINE CLOUDY (CLEAR); BACTERIA, URINE AUTO 1+ (NEGATIVE); BILIRUBIN, URINE AUTO NEGATIVE (NEGATIVE); BLOOD, URINE BLOOD 1+ (NEGATIVE); COLOR, URINE AMBER (YELLOW); GLUCOSE, URINE (UA) AUTO NEGATIVE (NEGATIVE); KETONE, URINE AUTO NEGATIVE (NEGATIVE); LEUKOCYTE ESTERASE, URINE AUTO NEGATIVE (NEGATIVE); MUCUS, URINE SMALL (NEGATIVE); NITRITE, URINE AUTO NEGATIVE (NEGATIVE); PROTEIN, URINE AUTO 1+ mg/dL (NEGATIVE); RBC, URINE AUTO 2 /HPF (0-3); SPECIFIC GRAVITY URINE AUTO 1.023 (1.002-1.035); SQUAMOUS EPITHELIAL CELL UR AU 43 /HPF (0-6); WBC, URINE AUTO 4 /HPF (0-3)
[2024-12-15 12:06] LABS: HEMATOCRIT 36.8 % (36.0-47.0); HEMOGLOBIN 11.6 g/dl (12.0-15.5); MEAN CORPUSCULAR HEMOGLOBIN 28.4 pg (27.0-33.0); MEAN CORPUSCULAR HGB CONC 31.5 g/dl (32.0-36.5); PLATELET COUNT, AUTOMATED 190 10^3/uL (150-450); RED BLOOD COUNT 4.09 10^6/uL (4.00-5.40); WHITE BLOOD COUNT 7.6 10^3/uL (4.0-10.0)
[2024-12-15 12:27] LABS: ATYPICAL LYMPH 24 % (0-5); EOSINOPHILS 4 % (0-3); LYMPHOCYTES 28 % (16-44); MONOCYTES 2 % (0-5); NEUTROPHILS 39 % (28-66); PLATELET ESTIMATE NORMAL (NORMAL); TOXIC GRANULATION 1+
[2024-12-15 12:28] LABS: ANISOCYTOSIS 1+
[2024-12-15 12:37] LABS: IRON (FE) 54 UG/DL (50-170); PERCENT SATURATION 18.8 % (13.2-45.0); TOTAL IRON BINDING CAPACITY 288 UG/DL (250-425)
[2024-12-15 12:38] LABS: ALBUMIN 2.8 G/DL (3.2-5.2); ALKALINE PHOSPHATASE 69 U/L (35-104); ALT/SGPT 78 U/L (7.0-40); AST/SGOT 69 U/L (<34); BILIRUBIN,TOTAL 0.6 MG/DL (0.3-1.2); BLOOD UREA NITROGEN 10 MG/DL (9-23); CALCIUM LEVEL 8.9 MG/DL (8.3-10.6); CARBON DIOXIDE LEVEL 31 MMOL/L (20-31); CHLORIDE LEVEL 106 MMOL/L (98-107); CREATININE FOR GFR 0.88 MG/DL (0.55-1.30); FERRITIN 312.5 NG/ML (7.3-270.7); GLOMERULAR FILTRATION RATE > 60.0 (>45); GLUCOSE, FASTING 90 MG/DL (74-106); MAGNESIUM LEVEL 2.2 MG/DL (1.8-2.4); POTASSIUM SERUM 4.5 MMOL/L (3.5-5.1); SODIUM LEVEL 141 MMOL/L (136-145); THYROID STIMULATING HORMONE 1.415 uIU/ML (0.55-4.78); TOTAL PROTEIN 6.3 G/DL (5.7-8.2)
[2024-12-15 12:39] LABS: FOLATE 7.3 NG/ML (>5.4); FREE T4 1.04 NG/DL (0.89-1.76); VITAMIN B12 LEVEL 386 PG/ML (211-911)
== END ==
LOC: M RAD 11:05
PROVIDERS: ATTEND Nurse Practitioner Family
DX: R53.83 Other fatigue (principal); R05.9 Cough, unspecified; D64.9 Anemia, unspecified

== ENCOUNTER 2024-12-19 09:26 | Emergency (ER) | payer MEDICARE ==
[~2024-12-19] VITALS: Ht 162.6 cm; Wt 93.9 kg
[2024-12-19 11:19] LABS: HEMATOCRIT 35.6 % (36.0-47.0); MEAN CORPUSCULAR HEMOGLOBIN 28.1 pg (27.0-33.0); MEAN CORPUSCULAR HGB CONC 30.9 g/dl (32.0-36.5); PLATELET COUNT, AUTOMATED 161 10^3/uL (150-450); RED BLOOD COUNT 3.91 10^6/uL (4.00-5.40); WHITE BLOOD COUNT 6.4 10^3/uL (4.0-10.0)
[2024-12-19 11:40] LABS: ATYPICAL LYMPH 29 % (0-5); EOSINOPHILS 4 % (0-3); LYMPHOCYTES 15 % (16-44); MONOCYTES 5 % (0-5); NEUTROPHILS 43 % (28-66); PLASMA CELL 1 % (0-0)
[2024-12-19 11:41] LABS: ANISOCYTOSIS 1+
[2024-12-19 11:42] LABS: PLATELET ESTIMATE NORMAL (NORMAL)
[2024-12-19 11:46] LABS: BLOOD UREA NITROGEN 11 MG/DL (9-23); CALCIUM LEVEL 8.8 MG/DL (8.3-10.6); CARBON DIOXIDE LEVEL 29 MMOL/L (20-31); CHLORIDE LEVEL 109 MMOL/L (98-107); GLOMERULAR FILTRATION RATE > 60.0 (>45); GLUCOSE, FASTING 87 MG/DL (74-106); POTASSIUM SERUM 4.4 MMOL/L (3.5-5.1); SODIUM LEVEL 145 MMOL/L (136-145)
[2024-12-19 11:48] LABS: FREE T4 1.13 NG/DL (0.89-1.76)
[2024-12-19 11:49] LABS: THYROID STIMULATING HORMONE 1.083 uIU/ML (0.55-4.78)
[2024-12-19 12:18] VITALS: BP 110/54; TEMP 97.9; O2SAT 98
== END 2024-12-19 13:10 | disposition home or self-care (01) ==
LOC: M ED 09:26
DX: J06.9 Acute upper respiratory infection, unspecified (principal); B34.1 Enterovirus infection, unspecified; I11.0 Hypertensive heart disease with heart failure; D64.9 Anemia, unspecified; K21.9 Gastro-esophageal reflux disease without esophagitis; G43.909 Migraine, unspecified, not intractable, without status migrainosus; Z95.0 Presence of cardiac pacemaker; Z79.899 Other long term (current) drug therapy; Z91.89 Other specified personal risk factors, not elsewhere classified; Z88.5 Allergy status to narcotic agent; Z88.1 Allergy status to other antibiotic agents; Z88.8 Allergy status to other drugs, medicaments and biological substances

== ENCOUNTER → 2025-01-29 | Outpatient (CLI) | payer MEDICARE | LOC: M WHC 15:05 | PROVIDERS: ATTEND Nurse Practitioner Family | DX: Z12.31 Encounter for screening mammogram for malignant neoplasm of breast (principal); R92.313 Mammographic fatty tissue density, bilateral breasts; Z95.0 Presence of cardiac pacemaker ==

== ENCOUNTER → 2025-02-08 | Outpatient (REF) | payer MEDICARE | LOC: M LAB REF 17:00 | PROVIDERS: ATTEND Nurse Practitioner Family | DX: R35.0 Frequency of micturition (principal) ==

== ENCOUNTER 2025-02-10 12:26 | Emergency (ER) | payer MEDICARE ==
[~2025-02-10] VITALS: Ht 162.6 cm; Wt 91.2 kg
[2025-02-10 12:32] VITALS: TEMP 97.2
[2025-02-10 13:15] LABS: KETONE, URINE AUTO RFX TRACE mg/dL (NEGATIVE); MUCUS, URINE RFX SMALL (NEGATIVE); NITRITE, URINE AUTO RFX NEGATIVE (NEGATIVE); RBC, URINE AUTO RFX 27 /HPF (0-3); SQUAM EPITHELIAL CELL UR AURFX 20 /HPF (0-6)
[2025-02-10 13:16] LABS: BASO % 0.3 % (0.0-1.0); EOS % 0.6 % (0.0-3.0); LYMPH # 1.9 10^3/uL (1.5-5.0); LYMPH % 30.4 % (24.0-44.0); MEAN CORPUSCULAR HEMOGLOBIN 28.4 pg (27.0-33.0); MEAN CORPUSCULAR HGB CONC 32.4 g/dl (32.0-36.5); MEAN CORPUSCULAR VOLUME 87.7 fl (80.0-96.0); MONO # 0.6 10^3/uL (0.0-0.8); MONO % 9.4 % (2.0-8.0); NEUTROPHILS # 3.7 10^3/uL (1.5-8.5); NEUTROPHILS % 58.5 % (36.0-66.0); PLATELET COUNT, AUTOMATED 172 10^3/uL (150-450); RED BLOOD COUNT 4.22 10^6/uL (4.00-5.40); WHITE BLOOD COUNT 6.3 10^3/uL (4.0-10.0)
[2025-02-10 13:17] LABS: LEUKOCYTE ESTERASE UR AUTO RFX 1+ (NEGATIVE); WBC, URINE AUTO RFX 42 /HPF (0-3)
[2025-02-10 13:40] LABS: CALCIUM LEVEL 9.3 MG/DL (8.3-10.6); CREATININE FOR GFR 0.76 MG/DL (0.55-1.30); POTASSIUM SERUM 3.3 MMOL/L (3.5-5.1)
[2025-02-10] MEDS ORDERED: ISOVUE-370 76% 100ML VIAL As Ordered ONE (14:50)
[2025-02-10] MEDS: NS (Normal Saline) 0.9% 1,000 ML IV ONE (15:20)
[2025-02-10 15:45] VITALS: BP 124/67; O2SAT 99
[2025-02-10] MEDS: POTASSIUM CHLORIDE 10MEQ SR TABLET PO ONE (16:01)
== END 2025-02-10 16:00 | disposition home or self-care (01) ==
LOC: M ED 12:26
DX: N10 Acute pyelonephritis (principal); N39.0 Urinary tract infection, site not specified; I10 Essential (primary) hypertension; K21.9 Gastro-esophageal reflux disease without esophagitis; Z79.899 Other long term (current) drug therapy; Z88.5 Allergy status to narcotic agent; Z88.1 Allergy status to other antibiotic agents; Z88.8 Allergy status to other drugs, medicaments and biological substances; Z91.89 Other specified personal risk factors, not elsewhere classified
CPT/HCPCS: 74177; 80048; 81001; 85025; 87086; 99284; Q9967

== ENCOUNTER → 2025-02-22 | Outpatient (CLI) | payer MEDICARE ==
[~2025-02-22] MED LIST changes: +E-Z-GAS II EFFERVESCENT PACKET (SODIUM BICARB./CITRIC ACID/SIMETHICONE) As Ordered ONE; +E-Z-HD 98% w/w 340GM SUSP BTL As Ordered ONE; +E-Z-PAQUE 96% w/w SUSP 176GM BTL As Ordered ONE
[2025-02-22 11:19] LABS: CALCIUM LEVEL 9.7 MG/DL (8.3-10.6); CREATININE FOR GFR 0.84 MG/DL (0.55-1.30); POTASSIUM SERUM 3.9 MMOL/L (3.5-5.1)
== END ==
LOC: M RAD 09:10
PROVIDERS: ATTEND Nurse Practitioner Family
DX: R10.13 Epigastric pain (principal); E87.6 Hypokalemia

== ENCOUNTER → 2025-03-02 | Outpatient (REF) | payer MEDICARE ==
[~2025-03-02] MED LIST changes: -E-Z-GAS II EFFERVESCENT PACKET (SODIUM BICARB./CITRIC ACID/SIMETHICONE) As Ordered ONE; -E-Z-HD 98% w/w 340GM SUSP BTL As Ordered ONE; -E-Z-PAQUE 96% w/w SUSP 176GM BTL As Ordered ONE
[2025-03-02 13:59] LABS: APPEARANCE, URINE HAZY (CLEAR); BACTERIA, URINE AUTO NEGATIVE (NEGATIVE); BILIRUBIN, URINE AUTO NEGATIVE (NEGATIVE); BLOOD, URINE BLOOD 2+ (NEGATIVE); COLOR, URINE YELLOW (YELLOW); GLUCOSE, URINE (UA) AUTO NEGATIVE (NEGATIVE); KETONE, URINE AUTO NEGATIVE (NEGATIVE); LEUKOCYTE ESTERASE, URINE AUTO NEGATIVE (NEGATIVE); MUCUS, URINE SMALL (NEGATIVE); NITRITE, URINE AUTO NEGATIVE (NEGATIVE); PROTEIN, URINE AUTO 1+ mg/dL (NEGATIVE); RBC, URINE AUTO 3 /HPF (0-3); SPECIFIC GRAVITY URINE AUTO 1.024 (1.002-1.035); SQUAMOUS EPITHELIAL CELL UR AU 6 /HPF (0-6); UROBILINOGEN, URINE AUTO 0.2 mg/dL (0.0-2.0); WBC, URINE AUTO 1 /HPF (0-3)
== END ==
LOC: M SMT 12:58
PROVIDERS: ATTEND Urology
DX: Z87.440 Personal history of urinary (tract) infections (principal)

== ENCOUNTER → 2025-06-26 | Outpatient (CLI) | payer MEDICARE ==
[2025-06-26 10:25] LABS: BASO # 0.0 10^3/uL (0.0-0.2); BASO % 0.4 % (0.0-1.0); EOS # 0.1 10^3/uL (0.0-0.5); EOS % 1.4 % (0.0-3.0); LYMPH # 2.3 10^3/uL (1.5-5.0); LYMPH % 45.9 % (24.0-44.0); MONO # 0.4 10^3/uL (0.0-0.8); MONO % 7.9 % (2.0-8.0); NEUTROPHILS # 2.2 10^3/uL (1.5-8.5); NEUTROPHILS % 44.2 % (36.0-66.0); PLATELET COUNT, AUTOMATED 157 10^3/uL (150-450)
[2025-06-26 11:00] LABS: ALT/SGPT 19.0 U/L (7.0-40); AST/SGOT 19.0 U/L (<34); CALCIUM LEVEL 9.6 MG/DL (8.3-10.6); CARBON DIOXIDE LEVEL 30.0 MMOL/L (20-31); CHLORIDE LEVEL 105.0 MMOL/L (98-107); CHOLESTEROL LEVEL 241.0 MG/DL (<200); CHOLESTEROL RISK RATIO 3.45 (<5); CREATININE FOR GFR 0.82 MG/DL (0.55-1.30); GLOMERULAR FILTRATION RATE 80.3 (>45); LDL CHOLESTEROL 155.4 MG/DL (<100); NON-HDL-C 171.2 MG/DL; POTASSIUM SERUM 4.2 MMOL/L (3.5-5.1); SODIUM LEVEL 143.0 MMOL/L (136-145); TRIGLYCERIDES LEVEL 79.0 MG/DL (<150)
[2025-06-26 11:01] LABS: TOTAL 25(OH) VITAMIN D 21.4 NG/ML (20.0-100.0)
[2025-06-26 11:02] LABS: FREE T4 1.08 NG/DL (0.89-1.76)
== END ==
LOC: M LAB 09:06
PROVIDERS: ATTEND Nurse Practitioner Family
DX: I10 Essential (primary) hypertension (principal); E78.5 Hyperlipidemia, unspecified; Z79.899 Other long term (current) drug therapy

== ENCOUNTER → 2025-08-03 | Outpatient (REF) | payer MEDICARE ==
[~2025-08-03] MED LIST changes: +ACET-907 PO; +CIPR500T39 PO; -PANT40TA29; +PANT40TA29 PO; +SEMA0.5P SC
== END ==
LOC: M LAB REF 16:44
PROVIDERS: ATTEND Nurse Practitioner Family
DX: R30.0 Dysuria (principal)

== ENCOUNTER 2025-08-04 16:23 | Inpatient (IN) | payer MEDICARE ==
[~2025-08-04] VITALS: Ht 162.6 cm; Wt 85.2 kg
[~2025-08-04 16:23] MED LIST changes: -ACET-907 PO; -CIPR500T39 PO; -SEMA0.5P SC
[2025-08-04] MEDS ORDERED: CIPR500T39 PO (16:34)
[2025-08-04] MEDS ORDERED: SEMA0.5P SC (16:34)
[2025-08-04 17:14] LABS: KETONE, URINE AUTO RFX 1+ mg/dL (NEGATIVE); LEUKOCYTE ESTERASE UR AUTO RFX 2+ (NEGATIVE); MUCUS, URINE RFX SMALL (NEGATIVE); NITRITE, URINE AUTO RFX NEGATIVE (NEGATIVE); RBC, URINE AUTO RFX TNTC /HPF (0-3); SQUAM EPITHELIAL CELL UR AURFX 4 /HPF (0-6); WBC, URINE AUTO RFX TNTC /HPF (0-3)
[2025-08-04 17:15] LABS: BASO # 0.0 10^3/uL (0.0-0.2); BASO % 0.1 % (0.0-1.0); EOS # 0.0 10^3/uL (0.0-0.5); EOS % 0.1 % (0.0-3.0); LYMPH # 1.1 10^3/uL (1.5-5.0); LYMPH % 13.2 % (24.0-44.0); MONO # 0.8 10^3/uL (0.0-0.8); MONO % 9.0 % (2.0-8.0); NEUTROPHILS # 6.5 10^3/uL (1.5-8.5); NEUTROPHILS % 77.2 % (36.0-66.0); PLATELET COUNT, AUTOMATED 155 10^3/uL (150-450)
[2025-08-04 17:44] LABS: ALT/SGPT 19.0 U/L (7.0-40); AST/SGOT 21.0 U/L (<34); CALCIUM LEVEL 9.2 MG/DL (8.3-10.6); CARBON DIOXIDE LEVEL 28.0 MMOL/L (20-31); CHLORIDE LEVEL 101.0 MMOL/L (98-107); CREATININE FOR GFR 0.88 MG/DL (0.55-1.30); GLOMERULAR FILTRATION RATE 73.8 (>45); POTASSIUM SERUM 3.2 MMOL/L (3.5-5.1); SODIUM LEVEL 140.0 MMOL/L (136-145)
[2025-08-04] MEDS ORDERED: ISOVUE-370 76% 100 ML VIAL As Ordered ONE (17:48)
[2025-08-04] MEDS: ACETAMINOPHEN *IV* 1,000 MG in IV 1 EA IV ONE (17:54)
[2025-08-04] MEDS: NS 500 ML IV ONE (17:58)
[2025-08-04] MEDS ORDERED: ACET-907 PO (19:27)
[2025-08-04] MEDS ORDERED: ELIQ5TAB PO (19:29)
[2025-08-04] MEDS ORDERED: KETOROLAC 30 MG/ML 1 ML VIAL IV PRN (19:30)
[2025-08-04] MEDS ORDERED: HOME MED LIST COMPLETE! XX SCH (19:30)
[2025-08-04] MEDS: cefTRIAXone SOD 1 GM in DEXTROSE 5% (D5W) ADV/MINI-BAG 50 ML IV ONE (19:43)
[2025-08-04] MEDS: ACETAMINOPHEN 325 MG TAB PO PRN (19:51)
[2025-08-04 19:54] LABS: C REACTIVE PROTEIN QUANTITATIV 9.73 MG/DL (<1.0)
[2025-08-04] MEDS: SODIUM CHLORIDE 0.9% 1000 ML IV SCH (21:42)
[2025-08-04] MEDS: POTASSIUM CHLORIDE 10% LIQ 20MEQ/15ML UDC PO SCH (21:42)
[2025-08-04] MEDS: APIXABAN 5 MG TAB PO SCH (21:42)
[2025-08-05 07:09] LABS: PLATELET COUNT, AUTOMATED 139 10^3/uL (150-450)
[2025-08-05 08:19] LABS: ALT/SGPT 16 U/L (7.0-40); AST/SGOT 18 U/L (<34); CALCIUM LEVEL 8.7 MG/DL (8.3-10.6); CARBON DIOXIDE LEVEL 27 MMOL/L (20-31); CHLORIDE LEVEL 106 MMOL/L (98-107); CREATININE FOR GFR 0.71 MG/DL (0.55-1.30); GLOMERULAR FILTRATION RATE > 90.0 (>45); POTASSIUM SERUM 3.3 MMOL/L (3.5-5.1); SODIUM LEVEL 144 MMOL/L (136-145)
[2025-08-05] MEDS: PANTOPRAZOLE 40MG TAB PO SCH (08:31)
[2025-08-05] MEDS: CETIRIZINE 10 MG TAB PO SCH (08:31)
[2025-08-05 08:45] LABS: MAGNESIUM LEVEL 1.9 MG/DL (1.8-2.4)
[2025-08-05] MEDS: MAG SULF 1GM/100ML (MAG RUN) 1 GM in IV 1 EA IV ONE (09:45)
[2025-08-05] MEDS: POTASSIUM CHLORIDE 10MEQ SR TABLET PO ONE ×3 (09:46→20:05)
[2025-08-05 10:00] VITALS: BP 123/57; TEMP 98.2; O2SAT 96
[2025-08-05 12:00] VITALS: BP 118/56; TEMP 98.2; O2SAT 96
[2025-08-05 14:00] VITALS: BP 120/59; TEMP 98; O2SAT 97
[2025-08-05 19:31] VITALS: BP 111/48; TEMP 97.7; O2SAT 95
[2025-08-05] MEDS: cefTRIAXone SOD 1 GM in DEXTROSE 5% (D5W) ADV/MINI-BAG 50 ML IV SCH (20:06)
[2025-08-06 03:53] VITALS: BP 115/57; TEMP 98.6; O2SAT 96
[2025-08-06 08:03] LABS: PLATELET COUNT, AUTOMATED 143 10^3/uL (150-450)
[2025-08-06 08:22] LABS: CALCIUM LEVEL 8.7 MG/DL (8.3-10.6); CARBON DIOXIDE LEVEL 26 MMOL/L (20-31); CHLORIDE LEVEL 110 MMOL/L (98-107); CREATININE FOR GFR 0.71 MG/DL (0.55-1.30); GLOMERULAR FILTRATION RATE > 90.0 (>45); MAGNESIUM LEVEL 2.2 MG/DL (1.8-2.4); POTASSIUM SERUM 4.3 MMOL/L (3.5-5.1); SODIUM LEVEL 144 MMOL/L (136-145)
[2025-08-06 12:00] VITALS: BP 123/74; TEMP 97.6; O2SAT 96
== END 2025-08-06 16:50 | disposition home or self-care (01) | DRG 690 ==
LOC: M ED 16:23 → M ED INP 16:24 → M MS4PR 08-05 10:29 → OBSVTOIN 08-06 10:41
PROVIDERS: ADMIT Student in an Organized Health Care Education/Training Program; ATTEND Student in an Organized Health Care Education/Training Program
DX: N10 Acute pyelonephritis (principal); I47.20 Ventricular tachycardia, unspecified; E87.6 Hypokalemia; I50.9 Heart failure, unspecified; E78.5 Hyperlipidemia, unspecified; Z96.651 Presence of right artificial knee joint; E86.0 Dehydration; I11.0 Hypertensive heart disease with heart failure; Z95.0 Presence of cardiac pacemaker; G89.29 Other chronic pain; Z86.711 Personal history of pulmonary embolism; M19.90 Unspecified osteoarthritis, unspecified site; Z79.01 Long term (current) use of anticoagulants; Z88.8 Allergy status to other drugs, medicaments and biological substances; Z88.5 Allergy status to narcotic agent; Z91.048 Other nonmedicinal substance allergy status; Z79.899 Other long term (current) drug therapy; N28.1 Cyst of kidney, acquired

== ENCOUNTER 2025-08-07 12:39 | Outpatient (CLI) | payer MEDICARE ==
[~2025-08-07 12:39] MED LIST changes: +ACET-907 PO; +CIPR500T39 PO; +SEMA0.5P SC
[2025-08-07 13:00] VITALS: BP 118/78; O2SAT 100
[2025-08-07] MEDS: cefTRIAXone SOD 2 GM in DEXTROSE 5% (D5W) ADV/MINI-BAG 50 ML IV ONE (13:07)
[2025-08-07 13:44] VITALS: BP 121/79; O2SAT 99
== END 2025-08-07 13:55 | disposition home or self-care (01) ==
LOC: M OPCLI5PR 12:39 → M MS5PR 12:41 → M OPCLI5PR 13:55
PROVIDERS: ATTEND Student in an Organized Health Care Education/Training Program
DX: N10 Acute pyelonephritis (principal); Z88.1 Allergy status to other antibiotic agents; Z88.5 Allergy status to narcotic agent; Z88.8 Allergy status to other drugs, medicaments and biological substances; Z91.048 Other nonmedicinal substance allergy status
CPT/HCPCS: 96365; J0696

== ENCOUNTER 2025-08-08 12:33 | Outpatient (CLI) | payer MEDICARE ==
[2025-08-08] MEDS: cefTRIAXone SOD 2 GM in DEXTROSE 5% (D5W) ADV/MINI-BAG 50 ML IV ONE (12:44)
[2025-08-08 12:45] VITALS: BP 115/65; O2SAT 98
== END 2025-08-08 13:28 | disposition home or self-care (01) ==
LOC: M OPCLI4PR 12:33 → M MS4PR 12:33 → M OPCLI4PR 13:28
PROVIDERS: ATTEND Student in an Organized Health Care Education/Training Program
DX: N10 Acute pyelonephritis (principal); Z88.5 Allergy status to narcotic agent; Z88.1 Allergy status to other antibiotic agents; Z88.8 Allergy status to other drugs, medicaments and biological substances; Z91.048 Other nonmedicinal substance allergy status
CPT/HCPCS: 96365; J0696

== ENCOUNTER 2025-08-09 06:44 | Outpatient (CLI) | payer MEDICARE ==
[~2025-08-09] VITALS: Ht 162.6 cm; Wt 84.0 kg
[2025-08-09 07:00] VITALS: BP 136/75; O2SAT 97
[2025-08-09] MEDS: cefTRIAXone SOD 2 GM in DEXTROSE 5% (D5W) ADV/MINI-BAG 50 ML IV ONE (07:46)
[2025-08-09 08:18] VITALS: BP 124/73; O2SAT 96
== END 2025-08-09 08:20 | disposition home or self-care (01) ==
LOC: M INFU 06:44
PROVIDERS: ATTEND Student in an Organized Health Care Education/Training Program
DX: N10 Acute pyelonephritis (principal); Z88.1 Allergy status to other antibiotic agents; Z88.5 Allergy status to narcotic agent; Z88.8 Allergy status to other drugs, medicaments and biological substances; Z91.048 Other nonmedicinal substance allergy status
CPT/HCPCS: 96365; J0696

== ENCOUNTER 2025-08-10 08:45 | Outpatient (CLI) | payer MEDICARE ==
[~2025-08-10] VITALS: Ht 162.6 cm; Wt 84.1 kg
[2025-08-10 08:50] VITALS: BP 132/81; O2SAT 98
[2025-08-10] MEDS: cefTRIAXone SOD 2 GM in DEXTROSE 5% (D5W) ADV/MINI-BAG 50 ML IV ONE (08:52)
[2025-08-10 09:25] VITALS: BP 136/84; O2SAT 97
== END 2025-08-10 09:20 ==
LOC: M INFU 08:45
PROVIDERS: ATTEND Student in an Organized Health Care Education/Training Program
DX: N10 Acute pyelonephritis (principal); Z88.1 Allergy status to other antibiotic agents; Z88.5 Allergy status to narcotic agent; Z88.8 Allergy status to other drugs, medicaments and biological substances
CPT/HCPCS: 96365; J0696

== ENCOUNTER → 2025-08-23 | Outpatient (CLI) | payer MEDICARE ==
[2025-08-23 10:21] LABS: BASO # 0.0 10^3/uL (0.0-0.2); BASO % 0.5 % (0.0-1.0); EOS # 0.1 10^3/uL (0.0-0.5); EOS % 1.3 % (0.0-3.0); LYMPH # 1.7 10^3/uL (1.5-5.0); LYMPH % 42.3 % (24.0-44.0); MONO # 0.3 10^3/uL (0.0-0.8); MONO % 7.3 % (2.0-8.0); NEUTROPHILS # 1.9 10^3/uL (1.5-8.5); NEUTROPHILS % 48.3 % (36.0-66.0); PLATELET COUNT, AUTOMATED 175 10^3/uL (150-450)
[2025-08-23 10:42] LABS: CALCIUM LEVEL 9.6 MG/DL (8.3-10.6); CARBON DIOXIDE LEVEL 30.0 MMOL/L (20-31); CHLORIDE LEVEL 106.0 MMOL/L (98-107); CREATININE FOR GFR 0.85 MG/DL (0.55-1.30); GLOMERULAR FILTRATION RATE 76.9 (>45); MAGNESIUM LEVEL 2.1 MG/DL (1.8-2.4); POTASSIUM SERUM 4.2 MMOL/L (3.5-5.1); SODIUM LEVEL 144.0 MMOL/L (136-145)
== END ==
LOC: M LAB 09:47
PROVIDERS: ATTEND Nurse Practitioner Family
DX: N10 Acute pyelonephritis (principal); E87.6 Hypokalemia; E83.42 Hypomagnesemia

== ENCOUNTER → 2025-09-06 | Outpatient (CLI) | payer MEDICARE | LOC: M RAD 14:20 | PROVIDERS: ATTEND Urology | DX: Z87.440 Personal history of urinary (tract) infections (principal) ==

== ENCOUNTER → 2025-09-08 | Outpatient (REF) | payer MEDICARE ==
[2025-09-08 16:01] LABS: APPEARANCE, URINE HAZY (CLEAR); BACTERIA, URINE AUTO NEGATIVE (NEGATIVE); BILIRUBIN, URINE AUTO NEGATIVE (NEGATIVE); BLOOD, URINE BLOOD 1+ (NEGATIVE); GLUCOSE, URINE (UA) AUTO NEGATIVE (NEGATIVE); KETONE, URINE AUTO NEGATIVE (NEGATIVE); LEUKOCYTE ESTERASE, URINE AUTO NEGATIVE (NEGATIVE); MUCUS, URINE SMALL (NEGATIVE); NITRITE, URINE AUTO NEGATIVE (NEGATIVE); PROTEIN, URINE AUTO NEGATIVE (NEGATIVE); RBC, URINE AUTO 2 /HPF (0-3); SPECIFIC GRAVITY URINE AUTO 1.012 (1.002-1.035); SQUAMOUS EPITHELIAL CELL UR AU 3 /HPF (0-6); UROBILINOGEN, URINE AUTO 0.2 mg/dL (0.0-2.0); WBC, URINE AUTO 2 /HPF (0-3)
== END ==
LOC: M SMT 15:10
PROVIDERS: ATTEND Urology
DX: R31.29 Other microscopic hematuria (principal)